=== PATIENT | female | born 1955 | race Caucasian/White ===

== ENCOUNTER 2020-03-23 17:37 | Emergency (ER) | payer MEDICARE, SELFPAY ==
[2020-03-23] VITALS (13 sets, daily range): BP systolic 206–249; BP diastolic 98–115; PULSE 62–82; RESP 17–62; TEMP 36.7; O2SAT 99–100; BMI 22.1
[2020-03-23 18:01] LABS: Add Manual Diff / Slide Review NO; Basophils Absolute Auto 0 /uL (0-100); Basophils Percent Auto 0.5 % (0-2); Eosinophils Absolute Auto 0 /uL (0-450); Eosinophils Percent Auto 0.1 % (2-4); Hematocrit 40.8 % (36-46); Hemoglobin 13.9 g/dL (12.0-16.0); Lymphocytes Absolute Auto 900 /uL (1100-4500); Lymphocytes Percent Auto 9.4 % (25-40); Mean Corpuscular HGB Conc 34.1 % (30-36); Mean Corpuscular Volume 90.7 fL (80-100); Monocytes Absolute Auto 400 /uL (0-900); Monocytes Percent Auto 4.4 % (3-14); Neutrophils Absolute Auto 8000 /uL (1500-7000); Neutrophils Percent Auto 85.6 % (50-75); Platelet Count 292 X10^3/uL (150-400); Red Cell Distribution Width 13.8 % (11.6-14.8); White Blood Cell Count 9.3 X10^3/uL (4.5-11.0)
[2020-03-23] MEDS: ONDANSETRON 4 MG/2 ML INJ IV ×2 (18:04→20:16)
[2020-03-23] MEDS: SODIUM CHLORIDE 0.9% 1,000 ML 1000 ML IV ×2 (18:04→20:45)
[2020-03-23 18:13] LABS: Alanine Aminotransferase 15 IU/L (<35); Albumin 4.7 g/dL (3.5-5.0); Albumin Globulin Ratio 1.3 (1.0-2.8); Alkaline Phosphatase 137 U/L (38-126); Aspartate Aminotransferase 28 IU/L (14-36); BUN Creatinine Ratio 17.1 (6-22); Blood Urea Nitrogen 20 mg/dL (7-17); Calcium 10.2 mg/dL (8.4-10.2); Carbon Dioxide 17 mmol/L (22-32); Chloride 105 mmol/L (98-107); Creatine Kinase 44 U/L (30-135); Estimated Glomerular Filt Rate 46.3 mL/min (>60); Globulin 3.5 g/dL (1.7-4.1); Glucose 194 mg/dL (80-110); HEMOLYSIS < 15 (0-50); Lipase 123 U/L (23-300); Potassium 3.2 mmol/L (3.4-5.1); Sodium 139 mmol/L (137-145); Total Protein 8.2 g/dL (6.3-8.2)
[2020-03-23 18:14] LABS: Lactate (Lactic Acid) 2.4 mmol/L (0.7-2.1)
[2020-03-23 18:25] LABS: Troponin I < 0.012 ng/mL (0.01-0.034)
--- NOTE | 2020-03-23 18:31 | DI.CT.S_ITS ---
PROCEDURE: CT CHEST ABD PEL W CON INDICATIONS: epigastric pain, abd pain, vomiting TECHNIQUE: After the administration of intravenous contrast, 5 mm thick sections acquired from the lung apices to the symphysis. 5 mm coronal and sagittal reformats were performed, with additional 7 mm MIP reformats through the lungs. For radiation dose reduction, the following was used: automated exposure control, adjustment of mA and/or kV according to patient size. COMPARISON: None. FINDINGS: Image quality: Excellent. CHEST: Lungs and pleura: No acute airspace opacities. Moderate upper lobe emphysematous changes. 6 mm right medial lung base nodule and 3 mm right posterior lower lobe subpleural nodule. Occasional punctate subpleural nodules throughout the left lower lobe. No pleural effusions or pneumothorax. Central and peripheral airways appear patent and normal in caliber. Mediastinum: Heart size is normal. No pericardial effusion. No mediastinal or hilar adenopathy by size criteria. Thoracic aorta and central pulmonary arteries are normal in size. Esophagus is normal in caliber. Very small hiatal hernia. Chest wall: Nonunited left mid posterior rib fracture. No axillary or supraclavicular adenopathy by size criteria. Thyroid gland is normal . ABDOMEN: Solid organs: Liver is normal in size and enhancement. Gallbladder is not seen. Biliary system is mildly prominent, but within normal limits post cholecystectomy . Biliary system is non dilated. Pancreas enhances normally. Spleen is normal in size and enhancement. 2.8 cm low-density left adrenal nodule. Kidneys demonstrate normal size and enhancement, without hydronephrosis. Peritoneum and bowel: There are expected surgical staple lines of reported gastric bypass. There is mild thin-walled dilatation of the 1st portion of the duodenum. Bowel loops otherwise have normal caliber. There is extensive diverticulosis of the sigmoid colon without acute diverticulitis. Mild wall thickening involving the proximal colon and to the proximal transverse colon with questionable pericolonic inflammation. This may be in part due to under distension. No associated fluid collections. No free fluid or air. Normal appendix. Nodes and vessels: No retroperitoneal or mesenteric adenopathy by size criteria. Aorta and inferior vena cava are normal in size. Miscellaneous: Surgical tacks and mesh of prior midline ventral abdominal wall hernia repair.. PELVIS: Genitourinary: Bladder wall thickness is normal. Uterus is surgically absent. Miscellaneous: No inguinal hernias or adenopathy. Bones: No suspicious bony lesions. No vertebral body compression fractures. Severe degenerative disc and endplate changes at the L2-3 level with grade 1 retrolisthesis. IMPRESSION: 1. Mild wall thickening and questionable pericolonic inflammation involving the proximal colon and proximal transverse colon. Findings suggestive of infectious or inflammatory colitis. 2. Moderate emphysema with a few right lung nodules as described. Follow-up chest CT in six months recommended to document stability. 3. Surgical changes of gastric bypass, cholecystectomy, and hysterectomy. 4. Sigmoid diverticulosis without acute diverticulitis. 5. 2.8 cm left adrenal adenoma. Dictated by: Jessica Tabares M.D. on 03/23/2020 at 19:39 Approved by: Jessica Tabares M.D. on 03/23/2020 at 19:51
[2020-03-23] MEDS: LORazepam 2 MG/ML INJ 0.5 MG IV ×2 (18:36→20:15)
[2020-03-23 19:56] LABS: Reflexed Lactate in 2 Hours Y
[2020-03-23] MEDS: methylPREDNISolone 125 MG/2 ML VIAL IV (20:17)
--- NOTE | 2020-03-23 20:32 | ED.NAVMDI ---
HPI - Nausea/Vomiting/Diarrhea <CYDNEY Sabillon-BC - Last Filed: 03/23/20 22:29> General Chief complaint: Nausea/Vomiting/Diarrhea Stated complaint: Nausea and Vomiting Time Seen by Provider: 03/23/20 17:41 Source: patient and family Mode of arrival: Wheelchair Limitations: no limitations History of Present Illness HPI Narrative: The patient is a 64-year-old female former smoker with history of hypertension and Marii-en-Y gastric bypass who presents with a chief complaint of nausea and vomiting that started after eating lunch at the [employer] today. She denies any diarrhea. She denies any abdominal pain, just states that she has issues with nausea and vomiting several times per month after her gastric bypass surgery. She denies any dysuria urgency or frequency. She denies any chest pain or shortness of breath. She states she feels anxious she states that she has also had a cholecystectomy. This all started about 3:00 a.m. today does not know how many times she has vomited but. States it is ?a lot she has not taken her blood pressure medication as she normally takes that at night. She took a nausea medicine after it started, but does not know what it is. She comes in with her friend. Related Data Previous Rx's Medication Instructions Recorded ondansetron 4 mg PO Q6H PRN #20 tab 03/23/20 prednisone 40 mg PO DAILY #10 tab 03/23/20 Allergies Allergy/AdvReac Type Severity Reaction Status Date / Time Penicillins Allergy Verified 03/23/20 18:10 Review of Systems <ZULY Sabillon - Last Filed: 03/23/20 22:29> Review of Systems Narrative: GENERAL: Denies chills, fatigue, malaise, fever, sweats. HEENT: Denies sinus pain, ear pain, sore throat, difficulty swallowing, dizziness. RESPIRATORY: Denies dyspnea, cough, wheezing, hemoptysis, sputum. CARDIOVASCULAR: Denies chest pain, palpitations, orthopnea, edema, GASTROINTESTINAL: See HPI : Denies dysuria, frequency, incontinence, hematuria, urinary retention. MUSCULOSKELETAL: denies weakness, joint pain, or bony pain SKIN: Denies rash, skin lesions, or other NEUROLOGIC: Denies weakness, headache, numbness, change in speech, confusion, seizures, incoordination. PSYCHIATRIC: No concerning psychosocial issues. 12 point review of systems is negative except for those stated above Patient History <KAMILLE Sabillon - Last Filed: 03/23/20 22:29> Medical History (Updated 03/23/20 @ 22:25 by KAMILLE Sabillon) Hypertension (Acute) Surgical History (Updated 03/23/20 @ 21:44 by KAMILLE Sabillon) History of cholecystectomy (Acute) History of Marii-en-Y gastric bypass (Acute) Social History Smoking Status: Former smoker Smoking Status: Former smoker alcohol intake frequency: 0-2 drinks per day Substance Use Type: does not use Exam <KAMILLE Sabillon - Last Filed: 03/23/20 22:29> Narrative Exam Narrative: GENERAL: This is a well-nourished, well-developed patient, appears very anxious HEAD: Atraumatic. Normocephalic. No temporal or scalp tenderness. EYES: Pupils equal round and reactive. Extraocular motions intact. No scleral icterus. No injection or drainage. ENT: Nose without bleeding, purulent drainage or septal hematoma. Throat without erythema, tonsillar hypertrophy or exudate. Uvula midline. Airway patent. NECK: Trachea midline. No JVD or lymphadenopathy. Supple, nontender, no meningeal signs. CARDIOVASCULAR: Regular rate and rhythm RESPIRATORY: Clear to auscultation. Breath sounds equal bilaterally. No wheezes, rales, or rhonchi. Tachypneic initially. GASTROINTESTINAL: Abdomen diffusely tender to palpation, non-tender, nondistended. No hepato-splenomegaly, or palpable masses. No guarding. Active bowel sounds all 4 quadrants EXTREMITIES: No clubbing, cyanosis, or edema. No joint tenderness, effusion, or edema noted. BACK: Nontender without deformity or crepitance. No flank tenderness. NEURO: AOx3. SKIN: No rash or erythema on visible skin Initial Vital Signs Initial Vital Signs: Vital Signs Temperature 98.1 F 03/23/20 17:47 Pulse Rate 62 03/23/20 17:47 Respiratory Rate 17 03/23/20 17:47 Blood Pressure 249/115 H 03/23/20 17:47 Pulse Oximetry 99 03/23/20 17:47 <Brian Kothari DO - Last Filed: 03/23/20 23:11> Initial Vital Signs Initial Vital Signs: Vital Signs Temperature 98.1 F 03/23/20 17:47 Pulse Rate 62 03/23/20 17:47 Respiratory Rate 17 03/23/20 17:47 Blood Pressure 249/115 H 03/23/20 17:47 Pulse Oximetry 99 03/23/20 17:47 Scores <ZULY SabillonBC - Last Filed: 03/23/20 22:29> GCS Camila coma scale eye opening: Spontaneous Camila coma scale verbal response: Orientated Camila coma scale motor response: Obey commands [place] coma scale total score: 15 Course <KAMILLE Sabillon - Last Filed: 03/23/20 22:29> Orders Ordered: ED Orders 03/23/20 17:50 Complete Blood Count AUTO DIFF Stat Comprehensive Metabolic Panel Stat Lactate (Lactic Acid) Stat Lipase Stat Troponin & CK Cardiac Panel Stat 03/23/20 18:31 CT chest abd pel w con Stat 03/23/20 20:32 Basic Metabolic Panel Stat Lactate (Lactic Acid) Stat Discontinued Medications Sodium Chloride (Normal Saline 0.9%) 1,000 mls @ 1,000 mls/hr IV BOLUS ONE Stop: 03/23/20 18:45 Last Infusion: 03/23/20 20:46 Dose: 0 mls/hr Documented by: Admin: 03/23/20 18:04 Dose: 1,000 mls/hr Documented by: DAVIAN Sodium Chloride (Normal Saline 0.9%) 1,000 mls @ 1,000 mls/hr IV BOLUS ONE Stop: 03/23/20 21:05 Last Infusion: 03/23/20 22:31 Dose: 0 mls/hr Documented by: Admin: 03/23/20 20:45 Dose: 1,000 mls/hr Documented by: MELVIN Lorazepam (Ativan) 0.5 mg IV NOW ONE Stop: 03/23/20 18:17 Last Admin: 03/23/20 18:36 Dose: 0.5 mg Documented by: DAVIAN Lorazepam (Ativan) 0.5 mg IV NOW ONE Stop: 03/23/20 20:09 Last Admin: 03/23/20 20:15 Dose: 0.5 mg Documented by: MELVIN Methylprednisolone (Solu-Medrol 125 Mg Vial) 125 mg IV NOW ONE Stop: 03/23/20 20:07 Last Admin: 03/23/20 20:17 Dose: 125 mg Documented by: MELVIN Ondansetron HCl (Zofran) 4 mg IV NOW ONE Stop: 03/23/20 17:47 Last Admin: 03/23/20 18:04 Dose: 4 mg Documented by: DAVIAN Ondansetron HCl (Zofran) 4 mg IV NOW ONE Stop: 03/23/20 20:07 Last Admin: 03/23/20 20:16 Dose: 4 mg Documented by: MELVIN Ondansetron HCl (Zofran Odt Prepack) 1 bottle MISC SEEINSTR ONE Stop: 03/23/20 22:22 Last Admin: 03/23/20 22:31 Dose: 1 bottle Documented by: CORINNE Potassium Chloride (Klor-Con M20) 40 meq PO DAILYCC [facility] Potassium Chloride (Klor-Con M20) 40 meq PO NOW ONE Stop: 03/23/20 21:22 Last Admin: 03/23/20 21:25 Dose: 40 meq Documented by: CORINNE Vital Signs Vital signs: Vital Signs - 8 hr 03/23/20 17:47 03/23/20 19:19 03/23/20 19:30 Temperature 98.1 F Pulse Rate 62 71 82 Respiratory Rate 17 20 36 H Blood Pressure 249/115 H 227/112 H 216/115 H Pulse Oximetry 99 99 03/23/20 20:00 03/23/20 20:30 03/23/20 21:00 Temperature Pulse Rate 72 75 80 Respiratory Rate 21 24 27 H Blood Pressure 225/112 H 206/108 H 209/114 H Pulse Oximetry 03/23/20 21:28 03/23/20 21:30 03/23/20 21:31 Temperature Pulse Rate 72 75 74 Respiratory Rate 23 22 23 Blood Pressure 219/111 H Pulse Oximetry 100 100 100 03/23/20 22:00 03/23/20 22:05 03/23/20 22:30 Temperature Pulse Rate 74 75 75 Respiratory Rate 26 H 26 H 62 H Blood Pressure 229/100 H Pulse Oximetry 03/23/20 22:31 Temperature Pulse Rate 80 Respiratory Rate 43 H Blood Pressure 218/98 H Pulse Oximetry <Brian Kothari DO - Last Filed: 03/23/20 23:11> Orders Ordered: ED Orders 03/23/20 17:50 Complete Blood Count AUTO DIFF Stat Comprehensive Metabolic Panel Stat Lactate (Lactic Acid) Stat Lipase Stat Troponin & CK Cardiac Panel Stat 03/23/20 18:31 CT chest abd pel w con Stat 03/23/20 20:32 Basic Metabolic Panel Stat Lactate (Lactic Acid) Stat Discontinued Medications Sodium Chloride (Normal Saline 0.9%) 1,000 mls @ 1,000 mls/hr IV BOLUS ONE Stop: 03/23/20 18:45 Last Infusion: 03/23/20 20:46 Dose: 0 mls/hr Documented by: Admin: 03/23/20 18:04 Dose: 1,000 mls/hr Documented by: DAVIAN Sodium Chloride (Normal Saline 0.9%) 1,000 mls @ 1,000 mls/hr IV BOLUS ONE Stop: 03/23/20 21:05 Last Infusion: 03/23/20 22:31 Dose: 0 mls/hr Documented by: Admin: 03/23/20 20:45 Dose: 1,000 mls/hr Documented by: MELVIN Lorazepam (Ativan) 0.5 mg IV NOW ONE Stop: 03/23/20 18:17 Last Admin: 03/23/20 18:36 Dose: 0.5 mg Documented by: DAVIAN Lorazepam (Ativan) 0.5 mg IV NOW ONE Stop: 03/23/20 20:09 Last Admin: 03/23/20 20:15 Dose: 0.5 mg Documented by: MELVIN Methylprednisolone (Solu-Medrol 125 Mg Vial) 125 mg IV NOW ONE Stop: 03/23/20 20:07 Last Admin: 03/23/20 20:17 Dose: 125 mg Documented by: MELVIN Ondansetron HCl (Zofran) 4 mg IV NOW ONE Stop: 03/23/20 17:47 Last Admin: 03/23/20 18:04 Dose: 4 mg Documented by: DAVIAN Ondansetron HCl (Zofran) 4 mg IV NOW ONE Stop: 03/23/20 20:07 Last Admin: 03/23/20 20:16 Dose: 4 mg Documented by: MELVIN Ondansetron HCl (Zofran Odt Prepack) 1 bottle MISC SEEINSTR ONE Stop: 03/23/20 22:22 Last Admin: 03/23/20 22:31 Dose: 1 bottle Documented by: CORINNE Potassium Chlor[facility] ([facility]-Con M[facility]) [facility] Potassium Chloride (Klor-Con M20) 40 meq PO NOW ONE Stop: 03/23/20 21:22 Last Admin: 03/23/20 21:25 Dose: 40 meq Documented by: CORINNE Vital Signs Vital signs: Vital Signs - 8 hr 03/23/20 17:47 03/23/20 19:19 03/23/20 19:30 Temperature 98.1 F Pulse Rate 62 71 82 Respiratory Rate 17 20 36 H Blood Pressure 249/115 H 227/112 H 216/115 H Pulse Oximetry 99 99 03/23/20 20:00 03/23/20 20:30 03/23/20 21:00 Temperature Pulse Rate 72 75 80 Respiratory Rate 21 24 27 H Blood Pressure 225/112 H 206/108 H 209/114 H Pulse Oximetry 03/23/20 21:28 03/23/20 21:30 03/23/20 21:31 Temperature Pulse Rate 72 75 74 Respiratory Rate 23 22 23 Blood Pressure 219/111 H Pulse Oximetry 100 100 100 03/23/20 22:00 03/23/20 22:05 03/23/20 22:30 Temperature Pulse Rate 74 75 75 Respiratory Rate 26 H 26 H 62 H Blood Pressure 229/100 H Pulse Oximetry 03/23/20 22:31 Temperature Pulse Rate 80 Respiratory Rate 43 H Blood Pressure 218/98 H Pulse Oximetry MDM - Nausea/Vomiting/Diarrhea <CYDNEY Sabillon- - Last Filed: 03/23/20 22:29> Lab Data Result diagrams: 03/23/20 17:50 03/23/20 20:32 Labs: Lab Results 03/23/20 03/23/20 03/23/20 Range/Units 17:50 17:50 17:50 WBC 9.3 (4.5-11.0) X10^3/uL RBC 4.50 (4.0-5.2) X10^6/uL Hgb 13.9 (12.0-16.0) g/dL Hct 40.8 (36-46) % MCV 90.7 (80-100) fL MCH 31.0 (26-34) PG MCHC 34.1 (30-36) % RDW 13.8 (11.6-14.8) % Plt Count 292 (150-400) X10^3/uL Neut % (Auto) 85.6 H (50-75) % Lymph % (Auto) 9.4 L (25-40) % [place] % (Auto) 4.4 (3-14) % Eos % (Auto) 0.1 L (2-4) % Baso % (Auto) 0.5 (0-2) % Neut # (Auto) 8000 H (0559-5558) /uL Lymph # (Auto) 900 L (1335-9208) /uL [place] # (Auto) 400 (0-900) /uL Eos # (Auto) 0 (0-450) /uL Baso # (Auto) 0 (0-100) /uL Sodium 139 (137-145) mmol/L Potassium 3.2 L (3.4-5.1) mmol/L Chloride 105 (98-107) mmol/L Carbon Dioxide 17 L (22-32) mmol/L BUN 20 H (7-17) mg/dL Creatinine 1.17 H (0.52-1.04) mg/dL Estimated GFR 46.3 L (>60) mL/min BUN/Creatinine Ratio 17.1 (6-22) Glucose 194 H (80-110) mg/dL Lactate 2.4 H (0.7-2.1) mmol/L Calcium 10.2 (8.4-10.2) mg/dL Total Bilirubin 1.0 (0.2-1.3) mg/dL AST 28 (14-36) IU/L ALT 15 (<35) IU/L Alkaline Phosphatase 137 H (38-126) U/L Total Creatine Kinase 44 (30-135) U/L CK-MB (CK-2) TNP CK-MB (CK-2) Rel Index TNP Troponin I < 0.012 (0.01-0.034) ng/mL Total Protein 8.2 (6.3-8.2) g/dL Albumin 4.7 (3.5-5.0) g/dL Globulin 3.5 (1.7-4.1) g/dL Albumin/Globulin Ratio 1.3 (1.0-2.8) Lipase 123 (23-300) U/L 03/23/20 03/23/20 Range/Units 20:32 20:32 WBC (4.5-11.0) X10^3/uL RBC (4.0-5.2) X10^6/uL Hgb (12.0-16.0) g/dL Hct (36-46) % MCV (80-100) fL MCH (26-34) PG MCHC (30-36) % RDW (11.6-14.8) % Plt Count (150-400) X10^3/uL Neut % (Auto) (50-75) % Lymph % (Auto) (25-40) % [place] % (Auto) (3-14) % Eos % (Auto) (2-4) % Baso % (Auto) (0-2) % Neut # (Auto) (8273-8471) /uL Lymph # (Auto) (4849-4201) /uL [place] # (Auto) (0-900) /uL Eos # (Auto) (0-450) /uL Baso # (Auto) (0-100) /uL Sodium 139 (137-145) mmol/L Potassium 3.2 L (3.4-5.1) mmol/L Chloride 106 (98-107) mmol/L Carbon Dioxide 19 L (22-32) mmol/L BUN 18 H (7-17) mg/dL Creatinine 1.03 (0.52-1.04) mg/dL Estimated GFR 53.6 L (>60) mL/min BUN/Creatinine Ratio 17.5 (6-22) Glucose 215 H (80-110) mg/dL Lactate 1.5 (0.7-2.1) mmol/L Calcium 9.9 (8.4-10.2) mg/dL Total Bilirubin (0.2-1.3) mg/dL AST (14-36) IU/L ALT (<35) IU/L Alkaline Phosphatase (38-126) U/L Total Creatine Kinase (30-135) U/L CK-MB (CK-2) CK-MB (CK-2) Rel Index Troponin I (0.01-0.034) ng/mL Total Protein (6.3-8.2) g/dL Albumin (3.5-5.0) g/dL Globulin (1.7-4.1) g/dL Albumin/Globulin Ratio (1.0-2.8) Lipase (23-300) U/L Urine Dip Bedside Urine Glucose 100 mg/dl Bedside Urine Bilirubin - Negative Bedside Urine Ketone ++ 40 Urine Specific [place] 1.010 Bedside Urine Occult Blood +/- Bedside Urine pH 7.5 Bedside Urine Protein + 30 Bedside Urine Urobilinogen - Negative Bedside Urine Nitrite - Negative Bedside Urine Leukocytes - Negative Esterase Imaging Data CT scan - abdomen/pelvis: Radiologist's Impression: [address] [place] [id number] Scan Report Signed Patient: Adri Mendoza [facility]#: [id number] : 4Acct:[id number] Age/Sex: 64 / FDate of Service: 03/23/20 Loc: ED Accession Number: [id number] Procedure: CT chest abd pel w con Ordering Provider: Marly Collins- PROCEDURE: CT CHEST ABD PEL W CON INDICATIONS: epigastric pain, abd pain, vomiting TECHNIQUE: After the administration of intravenous contrast, 5 mm thick sections acquired from the lung apices to the symphysis. 5 mm coronal and sagittal reformats were performed, with additional 7 mm MIP reformats through the lungs. For radiation dose reduction, the following was used: automated exposure control, adjustment of mA and/or kV according to patient size. COMPARISON: None. FINDINGS: Image quality: Excellent. CHEST: Lungs and pleura: No acute airspace opacities. Moderate upper lobe emphysematous changes. 6 mm right medial lung base nodule and 3 mm right posterior lower lobe subpleural nodule. Occasional punctate subpleural nodules throughout the left lower lobe. No pleural effusions or pneumothorax. Central and peripheral airways appear patent and normal in caliber. Mediastinum: Heart size is normal. No pericardial effusion. No mediastinal or hilar adenopathy by size criteria. Thoracic aorta and central pulmonary arteries are normal in size. Esophagus is normal in caliber. Very small hiatal hernia. Chest wall: Nonunited left mid posterior rib fracture. No axillary or supraclavicular adenopathy by size criteria. Thyroid gland is normal . ABDOMEN: Solid organs: Liver is normal in size and enhancement. Gallbladder is not seen. Biliary system is mildly prominent, but within normal limits post cholecystectomy . Biliary system is non dilated. Pancreas enhances normally. Spleen is normal in size and enhancement. 2.8 cm low-density left adrenal nodule. Kidneys demonstrate normal size and enhancement, without hydronephrosis. Peritoneum and bowel: There are expected surgical staple lines of reported gastric bypass. There is mild thin-walled dilatation of the 1st portion of the duodenum. Bowel loops otherwise have normal caliber. There is extensive diverticulosis of the sigmoid colon without acute diverticulitis. Mild wall thickening involving the proximal colon and to the proximal transverse colon with questionable pericolonic inflammation. This may be in part due to under distension. No associated fluid collections. No free fluid or air. Normal appendix. Nodes and vessels: No retroperitoneal or mesenteric adenopathy by size criteria. Aorta and inferior vena cava are normal in size. Miscellaneous: Surgical tacks and mesh of prior midline ventral abdominal wall hernia repair.. PELVIS: Genitourinary: Bladder wall thickness is normal. Uterus is surgically absent. Miscellaneous: No inguinal hernias or adenopathy. Bones: No suspicious bony lesions. No vertebral body compression fractures. Severe degenerative disc and endplate changes at the L2-3 level with grade 1 retrolisthesis. IMPRESSION: 1. Mild wall thickening and questionable pericolonic inflammation involving the proximal colon and proximal transverse colon. Findings suggestive of infectious or inflammatory colitis. 2. Moderate emphysema with a few right lung nodules as described. Follow-up chest CT in six months recommended to document stability. 3. Surgical changes of gastric bypass, cholecystectomy, and hysterectomy. 4. Sigmoid diverticulosis without acute diverticulitis. 5. 2.8 cm left adrenal adenoma. Dictated by: Jessica Tabares M.D. on 03/23/2020 at 19:39 Approved by: Jessica Tabares M.D. on 03/23/2020 at 19:51 ECG Data Attestation: I personally reviewed and interpreted this ECG as follows: Interpretation: Sinus rhythm. Ventricular rate 69. QRS 140. No ectopy noted. Viewed by Dr. Vargas. [facility] Narrative Medical decision making narrative: The patient is a 64-year-old female who presents with a chief complaint of profuse nausea and vomiting. This happened after eating and all [place]. guarding. Given her exam, presentation and history of gastric bypass, CT was taken and obtain. Illustrate colitis. This is moving thought to be inflammatory given that she has no leukocytosis, no fever. She was given steroids and anti medics as listed above, and felt much improved. The patient had not taken her antihypertensive medications prior to her visit today, so she received them during her p.o. trial. Of note her CT scan was found to have incidental findings of right leg nodules as well as adrenal nodule. Patient states that adrenal adenoma is not new. Encouraged follow-up with primary care provider when she gets back home. The patient was given IV fluid in the emergency department, her initial lactate was slightly elevated and her CO2 was initially 17, that be due to her tachypnea. Her CO2 improved to 19 on her repeat labs, and her lactate normalized. She was able to tolerate a p.o. trial, keeping down ice water and kamilah fátima. Prescriptions of Solu-Medrol and Zofran were sent in. Encouraged follow-up with primary care provider soon as possible coming back to the emergency department for any acute concerns such as inability keep down fluids. Also discussed monitor for abdominal pain with fever and flank pain. Her initial potassium was slightly low 3.2, so she was replaced in the emergency department. The patient was hypertensive upon arrival, with BP of 249/115. She eventually took her p.o. antihypertensive medications in the emergency department her blood pressure decreased to 219/111. She has no evidence of organ dysfunction, no chest pain shortness of breath or headache, so I encouraged her to repeat her blood pressure tomorrow, consider taking her blood pressure medication early, come back to the emergency department for any acute concerns and follow up with primary care provider. Discussed case with Dr. Kothari. Patient has no questions or concerns upon discharge and states understanding of return precautions as well as follow-up care. <Brian Kothari, DO - Last Filed: 03/23/20 23:11> Lab Data Labs: Lab Results 03/23/20 03/23/20 03/23/20 Range/Units 17:50 17:50 17:50 WBC 9.3 (4.5-11.0) X10^3/uL RBC 4.50 (4.0-5.2) X10^6/uL Hgb 13.9 (12.0-16.0) g/dL Hct 40.8 (36-46) % MCV 90.7 (80-100) fL MCH 31.0 (26-34) PG MCHC 34.1 (30-36) % RDW 13.8 (11.6-14.8) % Plt Count 292 (150-400) X10^3/uL Neut % (Auto) 85.6 H (50-75) % Lymph % (Auto) 9.4 L (25-40) % [place] % (Auto) 4.4 (3-14) % Eos % (Auto) 0.1 L (2-4) % Baso % (Auto) 0.5 (0-2) % Neut # (Auto) 8000 H (9206-5386) /uL Lymph # (Auto) 900 L (2721-0639) /uL [place] # (Auto) 400 (0-900) /uL Eos # (Auto) 0 (0-450) /uL Baso # (Auto) 0 (0-100) /uL Sodium 139 (137-145) mmol/L Potassium 3.2 L (3.4-5.1) mmol/L Chloride 105 (98-107) mmol/L Carbon Dioxide 17 L (22-32) mmol/L BUN 20 H (7-17) mg/dL Creatinine 1.17 H (0.52-1.04) mg/dL Estimated GFR 46.3 L (>60) mL/min BUN/Creatinine Ratio 17.1 (6-22) Glucose 194 H (80-110) mg/dL Lactate 2.4 H (0.7-2.1) mmol/L Calcium 10.2 (8.4-10.2) mg/dL Total Bilirubin 1.0 (0.2-1.3) mg/dL AST 28 (14-36) IU/L ALT 15 (<35) IU/L Alkaline Phosphatase 137 H (38-126) U/L Total Creatine Kinase 44 (30-135) U/L CK-MB (CK-2) TNP CK-MB (CK-2) Rel Index TNP Troponin I < 0.012 (0.01-0.034) ng/mL Total Protein 8.2 (6.3-8.2) g/dL Albumin 4.7 (3.5-5.0) g/dL Globulin 3.5 (1.7-4.1) g/dL Albumin/Globulin Ratio 1.3 (1.0-2.8) Lipase 123 (23-300) U/L 03/23/20 03/23/20 Range/Units 20:32 20:32 WBC (4.5-11.0) X10^3/uL RBC (4.0-5.2) X10^6/uL Hgb (12.0-16.0) g/dL Hct (36-46) % MCV (80-100) fL MCH (26-34) PG MCHC (30-36) % RDW (11.6-14.8) % Plt Count (150-400) X10^3/uL Neut % (Auto) (50-75) % Lymph % (Auto) (25-40) % [place] % (Auto) (3-14) % Eos % (Auto) (2-4) % Baso % (Auto) (0-2) % Neut # (Auto) (7433-4566) /uL Lymph # (Auto) (4934-4433) /uL [place] # (Auto) (0-900) /uL Eos # (Auto) (0-450) /uL Baso # (Auto) (0-100) /uL Sodium 139 (137-145) mmol/L Potassium 3.2 L (3.4-5.1) mmol/L Chloride 106 (98-107) mmol/L Carbon Dioxide 19 L (22-32) mmol/L BUN 18 H (7-17) mg/dL Creatinine 1.03 (0.52-1.04) mg/dL Estimated GFR 53.6 L (>60) mL/min BUN/Creatinine Ratio 17.5 (6-22) Glucose 215 H (80-110) mg/dL Lactate 1.5 (0.7-2.1) mmol/L Calcium 9.9 (8.4-10.2) mg/dL Total Bilirubin (0.2-1.3) mg/dL AST (14-36) IU/L ALT (<35) IU/L Alkaline Phosphatase (38-126) U/L Total Creatine Kinase (30-135) U/L CK-MB (CK-2) CK-MB (CK-2) Rel Index Troponin I (0.01-0.034) ng/mL Total Protein (6.3-8.2) g/dL Albumin (3.5-5.0) g/dL Globulin (1.7-4.1) g/dL Albumin/Globulin Ratio (1.0-2.8) Lipase (23-300) U/L Urine Dip Bedside Urine Glucose 100 mg/dl Bedside Urine Bilirubin - Negative Bedside Urine Ketone ++ 40 Urine Specific [place] 1.010 Bedside Urine Occult Blood +/- Bedside Urine pH 7.5 Bedside Urine Protein + 30 Bedside Urine Urobilinogen - Negative Bedside Urine Nitrite - Negative Bedside Urine Leukocytes - Negative Esterase Discharge Plan Departure Patient Disposition: Home Clinical Impression: Colitis, Lung nodule Adrenal adenoma Qualifiers: Laterality: left Qualified Code(s): D35.02 - Benign neoplasm of left adrenal gland Hypertension Qualifiers: Hypertension type: unspecified Qualified Code(s): I10 - Essential (primary) hypertension Discharge Date/Time: 03/23/20 22:39 Instructions: DI for High Blood Pressure, DI for Nausea -- Adult, DI for Vomiting -- Adult, DI for Pulmonary Nodule, DI for Colitis Activity Restrictions/Additional Instructions: Thank you for trusting us with your care today. As discussed, your CT scan shows colitis. We have placed you on steroids given you antinausea medicine. I sent these prescriptions to [facility]. Please eat a light diet over the next few days, focus on fluids avoid spicy foods, deep fried fatty foods, fatty foods alcohol citrus etcetera Please follow-up with primary care provider in the next few days as soon as possible. I have given you contact information [facility] health [employer] resource [employer]. They can help you find a primary care provider in the area. Please come back to emergency department for any acute concerns such as abdominal pain with fever, inability keep down fluids etcetera As discussed, your blood pressure has remained high throughout her stay in the emergency department. Please continue to take your blood pressure medications and repeat your blood pressure tomorrow. Of course come back to the emergency department for any acute concerns such as chest pain, shortness of breath, concerns of heart attack or stroke Prescriptions: New prednisone 20 mg tablet 40 mg PO DAILY Qty: 10 RF: 0 ondansetron 4 mg tablet,disintegrating 4 mg PO Q6H PRN (Reason: nausea and vomiting) Qty: 20 RF: 0 Referrals: [facility] [Outside] <Brian Kothari DO - Last Filed: 03/23/20 23:11> Cosign ED Attending Cosignature Attestation: Dr Kothari Co-Sign Statement: I was available for consultation during this patient's emergency department visit. This chart is signed by myself for administrative purposes only. I did not have direct contact with this patient during this visit. They were seen independently by the APC.
[2020-03-23 21:06] LABS: BUN Creatinine Ratio 17.5 (6-22); Blood Urea Nitrogen 18 mg/dL (7-17); Calcium 9.9 mg/dL (8.4-10.2); Carbon Dioxide 19 mmol/L (22-32); Chloride 106 mmol/L (98-107); Estimated Glomerular Filt Rate 53.6 mL/min (>60); Glucose 215 mg/dL (80-110); HEMOLYSIS < 15 (0-50); Lactate (Lactic Acid) 1.5 mmol/L (0.7-2.1); Potassium 3.2 mmol/L (3.4-5.1); Sodium 139 mmol/L (137-145)
[2020-03-23] MEDS: POTASSIUM CHLORIDE 20 MEQ TAB 40 MEQ PO (21:25)
[2020-03-23] MEDS: ONDANSETRON 4 MG ODT PREPACK 1 BOTTLE MISC (22:31)
== END 2020-03-23 22:39 | disposition home or self-care (01) ==
PROVIDERS: Emergency Provider Nurse Practitioner Family
DX: K52.9 Noninfective gastroenteritis and colitis, unspecified (principal); R91.1 Solitary pulmonary nodule; D35.02 Benign neoplasm of left adrenal gland; I10 Essential (primary) hypertension; R10.13 Epigastric pain
CPT/HCPCS: 36415; 71260; 74177; 80048; 80053; 81003; 82550; 83605; 83690; 84484; 85025; 93005; 96361; 96374; 96375; 96376; 99284; J2060; J2405; J2930; Q9967

== ENCOUNTER 2020-03-25 16:40 | Inpatient (IN) | payer MEDICARE, SELFPAY ==
[2020-03-25] VITALS (11 sets, daily range): BP systolic 97–228; BP diastolic 61–110; PULSE 53–95; RESP 14–32; TEMP 36.8–37.3; O2SAT 97–100; BMI 22.1; BMI 21.9
[2020-03-25] MEDS: SODIUM CHLORIDE 0.9% 1,000 ML 1000 ML IV (17:01)
[2020-03-25 17:06] LABS: Add Manual Diff / Slide Review NO; Basophils Absolute Auto 100 /uL (0-100); Basophils Percent Auto 0.4 % (0-2); Eosinophils Absolute Auto 0 /uL (0-450); Eosinophils Percent Auto 0.1 % (2-4); Hematocrit 46.9 % (36-46); Hemoglobin 15.4 g/dL (12.0-16.0); Lymphocytes Absolute Auto 2300 /uL (1100-4500); Lymphocytes Percent Auto 17.9 % (25-40); Mean Corpuscular HGB Conc 32.9 % (30-36); Monocytes Absolute Auto 800 /uL (0-900); Monocytes Percent Auto 6.1 % (3-14); Neutrophils Absolute Auto 9700 /uL (1500-7000); Neutrophils Percent Auto 75.5 % (50-75); Platelet Count 262 X10^3/uL (150-400); Red Blood Cell Count 5.15 X10^6/uL (4.0-5.2); Red Cell Distribution Width 14.4 % (11.6-14.8); White Blood Cell Count 12.9 X10^3/uL (4.5-11.0)
[2020-03-25 17:15] LABS: Alanine Aminotransferase 17 IU/L (<35); Albumin 4.5 g/dL (3.5-5.0); Albumin Globulin Ratio 1.2 (1.0-2.8); Alkaline Phosphatase 118 U/L (38-126); Aspartate Aminotransferase 25 IU/L (14-36); BUN Creatinine Ratio 12.9 (6-22); Bilirubin Total 1.3 mg/dL (0.2-1.3); Blood Urea Nitrogen 35 mg/dL (7-17); Calcium 10.2 mg/dL (8.4-10.2); Carbon Dioxide 23 mmol/L (22-32); Chloride 99 mmol/L (98-107); Estimated Glomerular Filt Rate 17.6 mL/min (>60); Globulin 3.8 g/dL (1.7-4.1); Glucose 129 mg/dL (80-110); HEMOLYSIS 19 (0-50); Potassium 3.6 mmol/L (3.4-5.1); Sodium 135 mmol/L (137-145); Total Protein 8.3 g/dL (6.3-8.2)
[2020-03-25] MEDS: ONDANSETRON 4 MG/2 ML INJ IV (17:36)
[2020-03-25] MEDS: LORazepam 2 MG/ML INJ 0.5 MG IV (17:36)
[2020-03-25 17:37] LABS: Lactate (Lactic Acid) 2.7 mmol/L (0.7-2.1)
[2020-03-25 17:40] LABS: Creatine Kinase 43 U/L (30-135)
--- NOTE | 2020-03-25 17:49 | DI.RAD.S_ITS ---
PROCEDURE: XR CHEST 1V INDICATIONS: chest pain TECHNIQUE: One view of the chest was acquired. COMPARISON: None. FINDINGS: Surgical changes and devices: Upper abdominal postoperative changes are seen. Lungs and pleura: Lungs are clear. No pleural effusions or pneumothorax. Mediastinum: The cardiac contours are within normal limits. The aorta demonstrates calcification and tortuosity. Bones and chest wall: Age-appropriate bony degenerative changes are seen. No suspicious bony lesions. Overlying soft tissues appear unremarkable. IMPRESSION: No acute cardiopulmonary process is seen. Postoperative and degenerative changes are seen. Dictated by: Vincenzo Martínez M.D. on 03/25/2020 at 17:20 Approved by: Vincenzo Martínez M.D. on 03/25/2020 at 17:21
[2020-03-25 17:53] LABS: Troponin I 0.026 ng/mL (0.01-0.034)
[2020-03-25 17:56] LABS: Procalcitonin 0.05 ng/mL (<0.5)
[2020-03-25] MEDS: LABETALOL 20 MG/4 ML SYRINGE 10 MG IV (18:10)
[2020-03-25] MEDS: HALOPERIDOL 5 MG/ML VIAL 2 MG IV (18:18)
[2020-03-25] MEDS: SODIUM CHLORIDE 0.9% 1,000 ML 150 ML IV (18:19)
[2020-03-25] MEDS: diphenhydrAMINE 50 MG/ML VIAL 25 MG IV (18:19)
--- NOTE | 2020-03-25 18:32 | PC.NURSE ---
pt states she was seen here recently and dx with colitis. states continues to have nausea, but manageable until this am about 0430. nausea and vomiting woke her from sleeping. pt having dry heaves.
--- NOTE | 2020-03-25 18:42 | ED.NAVMDI ---
HPI - Nausea/Vomiting/Diarrhea <Jesus TEX Lai - Last Filed: 03/26/20 00:18> General Chief complaint: Nausea/Vomiting/Diarrhea Stated complaint: NAUSEA Time Seen by Provider: 03/25/20 17:12 Source: patient and family Mode of arrival: Ambulatory Limitations: no limitations History of Present Illness HPI Narrative: This is a 64 year female, former smoker, who has history of hypertension, gastric bypass presents to ED with significant other with chief complain of ongoing nausea and vomiting that she cannot tolerate fluids at home. Patient reports since gastric bypass, she has occasional nausea and vomiting and her GI specialist explained that she probably has early dumping syndrome. She was evaluated 2 days ago ED with same chief complain and was treated for nausea and vomiting with multiple doses of Zofran, Ativan and hydrated with 2 liters of IV fluid, received potassium chloride replacement and IV Solu-Medrol for colitis. CT of abdomen and pelvis test was done as well which showed infectious versus inflammatory colitis, sigmoid diverticulosis, left adrenal adenoma and moderate emphysema with a few right lung nodules. Patient reports after she was discharged to home she slept most of the night and following day. She was try to hydrate with clear liquid only today but she had recurring nausea and vomiting and chills. Her significant other reports patient's temperature ran in 99+ F at home and when she started to have chills with vomiting, thought she needs re-evaluation for colitis as return precautions. Patient had last and 1 bottle of Gatorade today. Patient reports has not been urinating much today and last void was last than 1 hour prior coming into ED. patient reports urine does not appears to be to concentrated and does not endorses urinary symptoms. Patient reports no diarrhea and had last stool on Tuesday which was loose. Patient denies chest pain, breathing difficulty. Patient reports abdomen feels full and is uncomfortable but does not have pain. Patient coughs only with emesis. Patient reports frequent hiccups. Reports Ativan or last time when she had severe nausea and vomiting. She states had taken blood pressure medications, losartan and amlodipine this morning. Patient reports when she has nausea and vomiting her blood pressure tends to elevate otherwise usually is well managed with 2 hypertensive medications. Patient is from [place] and is planning to return to home on 03/31/20. Related Data Home Medications Medication Instructions Recorded Confirmed alendronate 12 mg PO QWEEK 03/25/20 03/25/20 amlodipine 10 mg PO DAILY 03/25/20 03/26/20 levothyroxine 175 mcg PO QAM 03/25/20 03/25/20 losartan 100 mg PO DAILY 03/25/20 03/26/20 paroxetine HCl 10 mg PO QAM 03/25/20 03/25/20 paroxetine HCl 40 mg PO QAM 03/25/20 03/25/20 zolpidem 10 mg PO BEDTIME PRN 03/25/20 03/25/20 Previous Rx's Medication Instructions Recorded ondansetron 4 mg PO Q6H PRN #20 tab 03/23/20 prednisone 40 mg PO DAILY #10 tab 03/23/20 Allergies Allergy/AdvReac Type Severity Reaction Status Date / Time Penicillins Allergy Verified 03/23/20 18:10 Review of Systems <TEX Lopez - Last Filed: 03/26/20 00:18> Review of Systems Narrative: General: Denies fever, (+) chills, fatigue, malaise, sweats. HEENT: Denies sinus pain, ear pain, sore throat, difficulty swallowing, dizziness. Respiratory: Denies dyspnea, cough, wheezing, hemoptysis, sputum. Cardiovascular: Denies chest pain, palpitations, orthopnea, edema. Gastrointestinal: See HPI : Denies dysuria, frequency, incontinence, hematuria, urinary retention, (+) decreased urine output. Musculoskeletal: Denies weakness, joint pain or bony pain. Skin: Denies rash, skin lesions, or other. Neurologic: Denies weakness, headache, numbness, change in speech, confusion, seizures, incoordination. Psychiatric: No concerning psychosocial issues. 12-point review of systems is negative except for those stated above. Patient History <TEX Lopez - Last Filed: 03/26/20 00:18> Medical History (Updated 03/26/20 @ 04:53 by TEX Reveles) Diverticulosis (Acute) Emphysema lung (Acute) Hypertension (Acute) Surgical History (Updated 03/26/20 @ 04:53 by TEX Reveles) History of cholecystectomy (Acute) History of hysterectomy (Acute) History of Marii-en-Y gastric bypass (Acute) History of ventral hernia repair (Acute) Family History (Updated 03/26/20 @ 04:54 by TEX Reveles) Father Heart attack Mother COPD (chronic obstructive pulmonary disease) Brother No significant medical problems Social History household members: friend(s) Smoking Status: Former smoker Smoking Status: Former smoker alcohol intake frequency: 0-2 drinks per day Substance Use Type: does not use Exam <TEX Lopez - Last Filed: 03/26/20 00:18> Narrative Exam Narrative: GEN: Alert, oriented x 3, thin appearing and in moderate distress from nausea. Appears to be cold and having shakes. Head: Normal cephalic, atraumatic. No scalp or temporal tenderness, palpable mass or rash. EYES: Pupils are equal, round, and reactive to light and accommodation. Extraocular muscles are intact bilaterally. There is no subconjunctival hemorrhage, exudate and sclera non-icteric. ENT: Hearing grossly intact. Mucous membrane dry, no mucosal lesion. Airway patent. Neck: Trachea in midline. No JVD, non-tender without lymphadenopathy. No masses or thyroid megaly. Supple, non-tender and no meningeal signs. CARDIAC: Normal regular rate and rhythm without murmurs, gallops, or rubs. No chest wall tenderness. No peripheral edema, cyanosis or pallor. Capillary refill is less than 2 seconds. RESPIRATORY: Lungs are clear to auscultate bilaterally. No cough, wheezes, rales, or rhonchi. No stridor, respiratory distress, increase work of breathing, or accessary muscle used. ABD: Abdomen soft, nontender and non-distended. No guarding or rebound tenderness to palpate. Bowel sounds are normal in all 4 quadrants. There is no palpable masses or organomegaly. EXT: Full painless ROM of all extremities with no loss of sensation, strength, effusion or edema. SKIN: Warm, dry, normal color for patient. No erythema, lesions or rash over visible areas. BACK: Nontender without deformity or crepitance. No flank tenderness. NEUROLOGICAL: Alert and oriented to place, time and person. Sensation and motor function intact bilaterally. No facial droops, dysphasia. PSYCHIATRIC: Good judgement and reason, without hallucinations, abnormal affect or abnormal behaviors during the examination. Patient is not suicidal. Initial Vital Signs Initial Vital Signs: Vital Signs Temperature 99.0 F 03/25/20 16:43 Pulse Rate 70 03/25/20 16:43 Respiratory Rate 22 03/25/20 16:43 Blood Pressure 190/98 H 03/25/20 16:43 Pulse Oximetry 100 03/25/20 16:43 <Carolina Tipton MD - Last Filed: 03/26/20 18:32> Initial Vital Signs Initial Vital Signs: Vital Signs Temperature 99.0 F 03/25/20 16:43 Pulse Rate 70 03/25/20 16:43 Respiratory Rate 22 03/25/20 16:43 Blood Pressure 190/98 H 03/25/20 16:43 Pulse Oximetry 100 03/25/20 16:43 Scores <TEX Lopez - Last Filed: 03/26/20 00:18> GCS Kent coma scale eye opening: Spontaneous Camila coma scale verbal response: Orientated [place] coma scale motor response: Obey commands Camila coma scale total score: 15 qSOFA Altered Mental Status (GCS <15): No Respiratory rate greater than/equal to 22: Yes Systolic blood pressure less than or equal to 100: No qSOFA Total: 1 0-1 Not High Risk 1-3 High risk Course <TEX Lopez - Last Filed: 03/26/20 00:18> Orders Ordered: Acetaminophen (Tylenol) 650 mg PO Q6HR PRN PRN Reason: Fever/Mild Pain (1-3) Amlodipine Besylate (Norvasc) 10 mg PO DAILY [facility] Last Admin: 03/26/20 08:55 Dose: 10 mg Documented by: CHARLIEBONOlivia Heparin Sodium (Porcine) (Heparin) 5,000 unit SUBCUT BID [facility] Last Admin: 03/26/20 08:55 Dose: 5,000 unit Documented by: SPABONA Sodium Chloride (Normal Saline 0.9%) 1,000 mls @ 125 mls/hr IV CONT [facility] Last Admin: 03/25/20 22:52 Dose: 125 mls/hr Documented by: KELLIE Ciprofloxacin (Cipro) 400 mg in 200 mls @ 200 mls/hr IV Q24H LUIS ENRIQUE Metronidazole (Flagyl) 500 mg in 100 mls @ 100 mls/hr IV Q8H [facility] Last Admin: 03/26/20 15:51 Dose: 100 mls/hr Documented by: Infusion: 03/26/20 08:56 Dose: 0 mls/hr Documented by: PO Admin: 03/26/20 07:49 Dose: 100 mls/hr Documented by: PO Thiamine HCl 100 mg/ Sodium (Chloride) 51 mls @ 204 mls/hr IV DAILY LUIS ENRIQUE Stop: 03/28/20 09:14 Last Infusion: 03/26/20 10:17 Dose: 0 mls/hr Documented by: PO Admin: 03/26/20 09:41 Dose: 204 mls/hr Documented by: PO Levothyroxine Sodium (Synthroid) 175 mcg PO 0600 [facility] Melatonin (Melatonin) 6 mg PO BEDTIME [facility] Last Admin: 03/26/20 00:14 Dose: 6 mg Documented by: OLESYA Multivitamins (Tab-A-Veronica) 1 tab PO DAILY [facility] Naloxone HCl (Narcan) 0.2 mg IV Q2MIN PRN PRN Reason: Opiate Reversal Ondansetron HCl (Zofran) 4 mg IV Q6HR PRN PRN Reason: Nausea And Vomiting Pantoprazole Sodium (Protonix) 40 mg IV DAILY [facility] Last Admin: 03/26/20 07:50 Dose: 40 mg Documented by: PO Paroxetine HCl (Paxil) 10 mg PO DAILY [facility] Paroxetine HCl (Paxil) 40 mg PO DAILY [facility] Sodium Chloride (Normal Saline 0.9% Flush) 10 ml IV PRN PRN PRN Reason: Flush Sodium Chloride (Normal Saline 0.9% Flush) 10 ml IV BID [facility] Last Admin: 03/26/20 09:41 Dose: Not Given Documented by: PO Vitamin D (Vitamin D3) 3,000 unit PO DAILY [facility] Zolpidem Tartrate (Ambien) 10 mg PO BEDTIME PRN PRN Reason: Insomnia Discontinued Medications Calcium Carbonate/Cholecalciferol (Oyster Shell 500-Vit D3 200 Tb) 1 each PO BIDWM [facility] Cyanocobalamin (Vitamin B-12) 1,000 mcg IM NOW ONE Stop: 03/26/20 17:46 Diphenhydramine HCl (Benadryl) 25 mg IV NOW ONE Stop: 03/25/20 18:15 Last Admin: 03/25/20 18:19 Dose: 25 mg Documented by: ELIZABETH Haloperidol (Haldol) 2 mg IV Q1H PRN PRN Reason: Agitation Last Admin: 03/25/20 18:18 Dose: 2 mg Documented by: ELIZABETH Sodium Chloride (Normal Saline 0.9%) 1,000 mls @ 1,000 mls/hr IV BOLUS ONE Stop: 03/25/20 17:53 Last Infusion: 03/25/20 18:10 Dose: 0 mls/hr Documented by: Admin: 03/25/20 17:01 Dose: 1,000 mls/hr Documented by: RADHA Sodium Chloride (Normal Saline 0.9%) 1,000 mls @ 150 mls/hr IV CONT [facility] Last Admin: 03/25/20 18:19 Dose: 150 mls/hr Documented by: ELIZABETH Ciprofloxacin (Cipro) 400 mg in 200 mls @ 200 mls/hr IV Q12H [facility] Last Admin: 03/26/20 00:14 Dose: 200 mls/hr Documented by: OLESYA Labetalol HCl (Trandate) 10 mg IV NOW ONE Stop: 03/25/20 17:50 Last Admin: 03/25/20 18:10 Dose: 10 mg Documented by: ELIZABETH Lorazepam (Ativan) 0.5 mg IV NOW ONE Stop: 03/25/20 17:26 Last Admin: 03/25/20 17:36 Dose: 0.5 mg Documented by: RADHA Lorazepam (Ativan) 0.5 mg IV Q6HR PRN PRN Reason: Nausea Losartan Potassium (Cozaar) 100 mg PO DAILY [facility] Last Admin: 03/26/20 08:55 Dose: 100 mg Documented by: PO Morphine Sulfate (Morphine) 2 mg IV Q4HR PRN PRN Reason: Pain, Moderate (4-6) Ondansetron HCl (Zofran) 4 mg IV NOW ONE Stop: 03/25/20 17:26 Last Admin: 03/25/20 17:36 Dose: 4 mg Documented by: RADHA Pantoprazole Sodium (Protonix) 40 mg IV NOW ONE Stop: 03/25/20 21:41 Last Admin: 03/25/20 22:47 Dose: 40 mg Documented by: KELLIE Vital Signs Vital signs: Vital Signs - 8 hr 03/25/20 16:43 03/25/20 16:51 03/25/20 17:00 Temperature 99.0 F Pulse Rate 70 72 77 Respiratory Rate 22 24 Blood Pressure 190/98 H 228/110 H 214/99 H Pulse Oximetry 100 98 98 03/25/20 17:30 03/25/20 18:00 03/25/20 18:10 Temperature Pulse Rate 73 75 95 H Respiratory Rate 30 H 32 H Blood Pressure 203/102 H 221/104 H 221/104 H Pulse Oximetry 100 100 03/25/20 18:30 03/25/20 18:42 03/25/20 19:02 Temperature 99.1 F Pulse Rate 73 74 Respiratory Rate 22 Blood Pressure 178/94 H 167/94 H Pulse Oximetry 98 <Carolina Tipton MD - Last Filed: 03/26/20 18:32> Orders Ordered: Acetaminophen (Tylenol) 650 mg PO Q6HR PRN PRN Reason: Fever/Mild Pain (1-3) Amlodipine Besylate (Norvasc) 10 mg PO DAILY [facility] Last Admin: 03/26/20 08:55 Dose: 10 mg Documented by: PO Heparin Sodium (Porcine) (Heparin) 5,000 unit SUBCUT BID [facility] Last Admin: 03/26/20 08:55 Dose: 5,000 unit Documented by: PO Sodium Chloride (Normal Saline 0.9%) 1,000 mls @ 125 mls/hr IV CONT [facility] Last Admin: 03/25/20 22:52 Dose: 125 mls/hr Documented by: KELLIE Ciprofloxacin (Cipro) 400 mg in 200 mls @ 200 mls/hr IV Q24H [facility] Metronidazole (Flagyl) 500 mg in 100 mls @ 100 mls/hr IV Q8H [facility] Last Admin: 03/26/20 15:51 Dose: 100 mls/hr Documented by: Infusion: 03/26/20 08:56 Dose: 0 mls/hr Documented by: PO Admin: 03/26/20 07:49 Dose: 100 mls/hr Documented by: PO Thiamine HCl 100 mg/ Sodium (Chloride) 51 mls @ 204 mls/hr IV DAILY [facility] Stop: 03/28/20 09:14 Last Infusion: 03/26/20 10:17 Dose: 0 mls/hr Documented by: PO Admin: 03/26/20 09:41 Dose: 204 mls/hr Documented by: PO Levothyroxine Sodium (Synthroid) 175 mcg PO 0600 [facility] Melatonin (Melatonin) 6 mg PO BEDTIME [facility] Last Admin: 03/26/20 00:14 Dose: 6 mg Documented by: OLESYA Multivitamins (Tab-A-Veronica) 1 tab PO DAILY [facility] Naloxone HCl (Narcan) 0.2 mg IV Q2MIN PRN PRN Reason: Opiate Reversal Ondansetron HCl (Zofran) 4 mg IV Q6HR PRN PRN Reason: Nausea And Vomiting Pantoprazole Sodium (Protonix) 40 mg IV DAILY [facility] Last Admin: 03/26/20 07:50 Dose: 40 mg Documented by: PO Paroxetine HCl (Paxil) 10 mg PO DAILY [facility] Paroxetine HCl (Paxil) 40 mg PO DAILY [facility] Sodium Chloride (Normal Saline 0.9% Flush) 10 ml IV PRN PRN PRN Reason: Flush Sodium Chloride (Normal Saline 0.9% Flush) 10 ml IV BID [facility] Last Admin: 03/26/20 09:41 Dose: Not Given Documented by: PO Vitamin D (Vitamin D3) 3,000 unit PO DAILY [facility] Zolpidem Tartrate (Ambien) 10 mg PO BEDTIME PRN PRN Reason: Insomnia Discontinued Medications Calcium Carbonate/Cholecalciferol (Oyster Shell 500-Vit D3 200 Tb) 1 each PO BIDWM [facility] Cyanocobalamin (Vitamin B-12) 1,000 mcg IM NOW ONE Stop: 03/26/20 17:46 Diphenhydramine HCl (Benadryl) 25 mg IV NOW ONE Stop: 03/25/20 18:15 Last Admin: 03/25/20 18:19 Dose: 25 mg Documented by: ELIZABETH Haloperidol (Haldol) 2 mg IV Q1H PRN PRN Reason: Agitation Last Admin: 03/25/20 18:18 Dose: 2 mg Documented by: ELIZABETH Sodium Chloride (Normal Saline 0.9%) 1,000 mls @ 1,000 mls/hr IV BOLUS ONE Stop: 03/25/20 17:53 Last Infusion: 03/25/20 18:10 Dose: 0 mls/hr Documented by: Admin: 03/25/20 17:01 Dose: 1,000 mls/hr Documented by: RADHA Sodium Chloride (Normal Saline 0.9%) 1,000 mls @ 150 mls/hr IV CONT [facility] Last Admin: 03/25/20 18:19 Dose: 150 mls/hr Documented by: ELIZABETH Ciprofloxacin (Cipro) 400 mg in 200 mls @ 200 mls/hr IV Q12H [facility] Last Admin: 03/26/20 00:14 Dose: 200 mls/hr Documented by: OLESYA Labetalol HCl (Trandate) 10 mg IV NOW ONE Stop: 03/25/20 17:50 Last Admin: 03/25/20 18:10 Dose: 10 mg Documented by: ELIZABETH Lorazepam (Ativan) 0.5 mg IV NOW ONE Stop: 03/25/20 17:26 Last Admin: 03/25/20 17:36 Dose: 0.5 mg Documented by: RADHA Lorazepam (Ativan) 0.5 mg IV Q6HR PRN PRN Reason: Nausea Losartan Potassium (Cozaar) 100 mg PO DAILY [facility] Last Admin: 03/26/20 08:55 Dose: 100 mg Documented by: PO Morphine Sulfate (Morphine) 2 mg IV Q4HR PRN PRN Reason: Pain, Moderate (4-6) Ondansetron HCl (Zofran) 4 mg IV NOW ONE Stop: 03/25/20 17:26 Last Admin: 03/25/20 17:36 Dose: 4 mg Documented by: RADHA Pantoprazole Sodium (Protonix) 40 mg IV NOW ONE Stop: 03/25/20 21:41 Last Admin: 03/25/20 22:47 Dose: 40 mg Documented by: KELLIE Vital Signs Vital signs: Vital Signs - 8 hr 03/25/20 16:43 03/25/20 16:51 03/25/20 17:00 Temperature 99.0 F Pulse Rate 70 72 77 Respiratory Rate 22 24 Blood Pressure 190/98 H 228/110 H 214/99 H Pulse Oximetry 100 98 98 03/25/20 17:30 03/25/20 18:00 03/25/20 18:10 Temperature Pulse Rate 73 75 95 H Respiratory Rate 30 H 32 H Blood Pressure 203/102 H 221/104 H 221/104 H Pulse Oximetry 100 100 03/25/20 18:30 03/25/20 18:42 03/25/20 19:02 Temperature 99.1 F Pulse Rate 73 74 Respiratory Rate 22 Blood Pressure 178/94 H 167/94 H Pulse Oximetry 98 MDM - Nausea/Vomiting/Diarrhea <Jesus TEX Lai - Last Filed: 03/26/20 00:18> Differential Diagnosis Differential diagnosis: Likely other (infection colitis, nausea and vomiting, STEMI, dehydration, electrolyte imbalance) Medical Records Attestation: I reviewed the patient's medical records. Lab Data Attestation: I reviewed the patient's lab results. Result diagrams: 03/26/20 04:50 03/26/20 04:50 Labs: Lab Results 03/25/20 03/25/20 03/25/20 Range/Units 16:55 16:55 16:55 WBC 12.9 H (4.5-11.0) X10^3/uL RBC 5.15 (4.0-5.2) X10^6/uL Hgb 15.4 (12.0-16.0) g/dL Hct 46.9 H (36-46) % MCV 91.0 (80-100) fL MCH 30.0 (26-34) PG MCHC 32.9 (30-36) % RDW 14.4 (11.6-14.8) % Plt Count 262 (150-400) X10^3/uL Neut % (Auto) 75.5 H (50-75) % Lymph % (Auto) 17.9 L (25-40) % [place] % (Auto) 6.1 (3-14) % Eos % (Auto) 0.1 L (2-4) % Baso % (Auto) 0.4 (0-2) % Neut # (Auto) 9700 H (4664-1883) /uL Lymph # (Auto) 2300 (6460-4215) /uL [place] # (Auto) 800 (0-900) /uL Eos # (Auto) 0 (0-450) /uL Baso # (Auto) 100 (0-100) /uL Sodium 135 L (137-145) mmol/L Potassium 3.6 (3.4-5.1) mmol/L Chloride 99 (98-107) mmol/L Carbon Dioxide 23 (22-32) mmol/L BUN 35 H (7-17) mg/dL Creatinine 2.71 H (0.52-1.04) mg/dL Estimated GFR 17.6 L (>60) mL/min BUN/Creatinine Ratio 12.9 (6-22) Glucose 129 H (80-110) mg/dL Lactate (0.7-2.1) mmol/L Calcium 10.2 (8.4-10.2) mg/dL Magnesium (1.6-2.3) mg/dL Total Bilirubin 1.3 (0.2-1.3) mg/dL AST 25 (14-36) IU/L ALT 17 (<35) IU/L Alkaline Phosphatase 118 (38-126) U/L Total Creatine Kinase 43 (30-135) U/L CK-MB (CK-2) TNP CK-MB (CK-2) Rel Index TNP Troponin I 0.026 (0.01-0.034) ng/mL Total Protein 8.3 H (6.3-8.2) g/dL Albumin 4.5 (3.5-5.0) g/dL Globulin 3.8 (1.7-4.1) g/dL Albumin/Globulin Ratio 1.2 (1.0-2.8) Procalcitonin (<0.5) ng/mL Urine RBC (0-5/HPF) Urine WBC (0-5/HPF) Ur Squamous Epith Cells (0-5/HPF) Amorphous Sediment Urine Bacteria (None) Ur Culture Indicated? COVID-19 PCR (Negative) 03/25/20 03/25/20 03/25/20 Range/Units 16:55 16:55 16:55 WBC (4.5-11.0) X10^3/uL RBC (4.0-5.2) X10^6/uL Hgb (12.0-16.0) g/dL Hct (36-46) % MCV (80-100) fL MCH (26-34) PG MCHC (30-36) % RDW (11.6-14.8) % Plt Count (150-400) X10^3/uL Neut % (Auto) (50-75) % Lymph % (Auto) (25-40) % [place] % (Auto) (3-14) % Eos % (Auto) (2-4) % Baso % (Auto) (0-2) % Neut # (Auto) (6349-8300) /uL Lymph # (Auto) (3485-3137) /uL [place] # (Auto) (0-900) /uL Eos # (Auto) (0-450) /uL Baso # (Auto) (0-100) /uL Sodium (137-145) mmol/L Potassium (3.4-5.1) mmol/L Chloride (98-107) mmol/L Carbon Dioxide (22-32) mmol/L BUN (7-17) mg/dL Creatinine (0.52-1.04) mg/dL Estimated GFR (>60) mL/min BUN/Creatinine Ratio (6-22) Glucose (80-110) mg/dL Lactate 2.7 H (0.7-2.1) mmol/L Calcium (8.4-10.2) mg/dL Magnesium 1.8 (1.6-2.3) mg/dL Total Bilirubin (0.2-1.3) mg/dL AST (14-36) IU/L ALT (<35) IU/L Alkaline Phosphatase (38-126) U/L Total Creatine Kinase (30-135) U/L CK-MB (CK-2) CK-MB (CK-2) Rel Index Troponin I (0.01-0.034) ng/mL Total Protein (6.3-8.2) g/dL Albumin (3.5-5.0) g/dL Globulin (1.7-4.1) g/dL Albumin/Globulin Ratio (1.0-2.8) Procalcitonin 0.05 (<0.5) ng/mL Urine RBC (0-5/HPF) Urine WBC (0-5/HPF) Ur Squamous Epith Cells (0-5/HPF) Amorphous Sediment Urine Bacteria (None) Ur Culture Indicated? COVID-19 PCR (Negative) 03/25/20 03/25/20 Range/Units 18:15 18:38 WBC (4.5-11.0) X10^3/uL RBC (4.0-5.2) X10^6/uL Hgb (12.0-16.0) g/dL Hct (36-46) % MCV (80-100) fL MCH (26-34) PG MCHC (30-36) % RDW (11.6-14.8) % Plt Count (150-400) X10^3/uL Neut % (Auto) (50-75) % Lymph % (Auto) (25-40) % [place] % (Auto) (3-14) % Eos % (Auto) (2-4) % Baso % (Auto) (0-2) % Neut # (Auto) (2625-0431) /uL Lymph # (Auto) (9154-0604) /uL [place] # (Auto) (0-900) /uL Eos # (Auto) (0-450) /uL Baso # (Auto) (0-100) /uL Sodium (137-145) mmol/L Potassium (3.4-5.1) mmol/L Chloride (98-107) mmol/L Carbon Dioxide (22-32) mmol/L BUN (7-17) mg/dL Creatinine (0.52-1.04) mg/dL Estimated GFR (>60) mL/min BUN/Creatinine Ratio (6-22) Glucose (80-110) mg/dL Lactate (0.7-2.1) mmol/L Calcium (8.4-10.2) mg/dL Magnesium (1.6-2.3) mg/dL Total Bilirubin (0.2-1.3) mg/dL AST (14-36) IU/L ALT (<35) IU/L Alkaline Phosphatase (38-126) U/L Total Creatine Kinase (30-135) U/L CK-MB (CK-2) CK-MB (CK-2) Rel Index Troponin I (0.01-0.034) ng/mL Total Protein (6.3-8.2) g/dL Albumin (3.5-5.0) g/dL Globulin (1.7-4.1) g/dL Albumin/Globulin Ratio (1.0-2.8) Procalcitonin (<0.5) ng/mL Urine RBC 0-1/hpf (0-5/HPF) Urine WBC 0-1/hpf (0-5/HPF) Ur Squamous Epith Cells 1-5 /hpf (0-5/HPF) Amorphous Sediment 1+ Urine Bacteria Occasional (0-1) (None) Ur Culture Indicated? Cult not indicated COVID-19 PCR Negative (Negative) Urine Dip Bedside Urine Glucose 100 mg/dl Bedside Urine Bilirubin + 1 Bedside Urine Ketone - Negative Urine Specific [place] 1.015 Bedside Urine Occult Blood +/- Bedside Urine pH 6.0 Bedside Urine Protein ++ 100 Bedside Urine Urobilinogen - Negative Bedside Urine Nitrite - Negative Bedside Urine Leukocytes - Negative Esterase ECG Data Attestation: I personally reviewed and interpreted this ECG as follows: Prior ECG tracings: available for review Interpretation: Sinus rhythm rate at 73. Left dominant axis. Widened QRS. AL interval 198, QRS duration 126, QT/QTC 396/436 Peak T waves V3-V4 No acute ST changes. No changes from 2 days ago. MDM Narrative Medical decision making narrative: This is a 64 year female who presents to ED with recurring and profound nausea and vomiting. She was evaluated 2 days ago with a same chief complain and discharged to home after IV hydration, after nausea and vomiting was managed with prednisone to treat colitis. Patient reports was unable to tolerate p.o. clear liquid fluids at home and when she developed chills and mildly elevated temperature to 99+ F, she return to ED for an re-evaluation and treatment. EKG was normal sinus rhythm rate at 73 with widened QRS duration without acute ST changes. Temperature is 99 degree F with slight tachypnea of 22 and hypertension of 190/98. Patient denies chest pain, breathing difficulty or abdominal pain. Mild leukocytosis of 12.9 which is increased from 9.3 2 days ago with elevated neutrophil of 9700. Concerned for infection or worsening colitis by patient is currently taking prednisone which could increased WBC. Initial lactate of 2.7 with normal procalcitonin. Normal potassium of 3.6 and slightly low hyponatremia of 135. Significantly elevated BUN of 35 with acutely increased creatinine of 2.71 from 1.03 2 days ago with eGFR of 17.6 from 53.6 indicating acute kidney injury likely from dehydration. Troponin is 0.026. Chest x-ray does not show acute cardiopulmonary process. Urine is negative for leuko esterase or nitrites indicating infection. The patient was medicated with IV fluid 1 L normal saline bolus and followed with gentle rehydration rate at 150 mL/hour. Acute nausea vomiting was medicated with Zofran and Ativan which was not effective. Patient was given additional medication Benadryl 25 and 2 mg Haldol which improved patient's symptoms significantly. Blood pressure had increased upto 228/110 and given labetalol 10 mg IV and this has improved to 178/94. Patient reports feeling much improved. Discussed lab findings and recurring gentle IV hydration and monitoring kidney function test while hospitalized with patient and significant other and they both agree with the treatment plan. 1814- Dr. Gayle consulted with left findings and patient's HPI, she kindly accepted patient's care to treat SAV and dehydration and to monitor kidney function test, abdominal pain for colitis whether the patient requires antibiotic medication. Dr. Gayle defered repeating CT Abdomen/Pelvis at this time. <Carolina Tipton MD - Last Filed: 03/26/20 18:32> Lab Data Labs: Lab Results 03/25/20 03/25/20 03/25/20 Range/Units 16:55 16:55 16:55 WBC 12.9 H (4.5-11.0) X10^3/uL RBC 5.15 (4.0-5.2) X10^6/uL Hgb 15.4 (12.0-16.0) g/dL Hct 46.9 H (36-46) % MCV 91.0 (80-100) fL MCH 30.0 (26-34) PG MCHC 32.9 (30-36) % RDW 14.4 (11.6-14.8) % Plt Count 262 (150-400) X10^3/uL Neut % (Auto) 75.5 H (50-75) % Lymph % (Auto) 17.9 L (25-40) % [place] % (Auto) 6.1 (3-14) % Eos % (Auto) 0.1 L (2-4) % Baso % (Auto) 0.4 (0-2) % Neut # (Auto) 9700 H (5626-4572) /uL Lymph # (Auto) 2300 (9744-6319) /uL [place] # (Auto) 800 (0-900) /uL Eos # (Auto) 0 (0-450) /uL Baso # (Auto) 100 (0-100) /uL Sodium 135 L (137-145) mmol/L Potassium 3.6 (3.4-5.1) mmol/L Chloride 99 (98-107) mmol/L Carbon Dioxide 23 (22-32) mmol/L BUN 35 H (7-17) mg/dL Creatinine 2.71 H (0.52-1.04) mg/dL Estimated GFR 17.6 L (>60) mL/min BUN/Creatinine Ratio 12.9 (6-22) Glucose 129 H (80-110) mg/dL Lactate (0.7-2.1) mmol/L Calcium 10.2 (8.4-10.2) mg/dL Magnesium (1.6-2.3) mg/dL Total Bilirubin 1.3 (0.2-1.3) mg/dL AST 25 (14-36) IU/L ALT 17 (<35) IU/L Alkaline Phosphatase 118 (38-126) U/L Total Creatine Kinase 43 (30-135) U/L CK-MB (CK-2) TNP CK-MB (CK-2) Rel Index TNP Troponin I 0.026 (0.01-0.034) ng/mL Total Protein 8.3 H (6.3-8.2) g/dL Albumin 4.5 (3.5-5.0) g/dL Globulin 3.8 (1.7-4.1) g/dL Albumin/Globulin Ratio 1.2 (1.0-2.8) Procalcitonin (<0.5) ng/mL Urine RBC (0-5/HPF) Urine WBC (0-5/HPF) Ur Squamous Epith Cells (0-5/HPF) Amorphous Sediment Urine Bacteria (None) Ur Culture Indicated? COVID-19 PCR (Negative) 03/25/20 03/25/20 03/25/20 Range/Units 16:55 16:55 16:55 WBC (4.5-11.0) X10^3/uL RBC (4.0-5.2) X10^6/uL Hgb (12.0-16.0) g/dL Hct (36-46) % MCV (80-100) fL MCH (26-34) PG MCHC (30-36) % RDW (11.6-14.8) % Plt Count (150-400) X10^3/uL Neut % (Auto) (50-75) % Lymph % (Auto) (25-40) % [place] % (Auto) (3-14) % Eos % (Auto) (2-4) % Baso % (Auto) (0-2) % Neut # (Auto) (8658-9394) /uL Lymph # (Auto) (2556-1178) /uL [place] # (Auto) (0-900) /uL Eos # (Auto) (0-450) /uL Baso # (Auto) (0-100) /uL Sodium (137-145) mmol/L Potassium (3.4-5.1) mmol/L Chloride (98-107) mmol/L Carbon Dioxide (22-32) mmol/L BUN (7-17) mg/dL Creatinine (0.52-1.04) mg/dL Estimated GFR (>60) mL/min BUN/Creatinine Ratio (6-22) Glucose (80-110) mg/dL Lactate 2.7 H (0.7-2.1) mmol/L Calcium (8.4-10.2) mg/dL Magnesium 1.8 (1.6-2.3) mg/dL Total Bilirubin (0.2-1.3) mg/dL AST (14-36) IU/L ALT (<35) IU/L Alkaline Phosphatase (38-126) U/L Total Creatine Kinase (30-135) U/L CK-MB (CK-2) CK-MB (CK-2) Rel Index Troponin I (0.01-0.034) ng/mL Total Protein (6.3-8.2) g/dL Albumin (3.5-5.0) g/dL Globulin (1.7-4.1) g/dL Albumin/Globulin Ratio (1.0-2.8) Procalcitonin 0.05 (<0.5) ng/mL Urine RBC (0-5/HPF) Urine WBC (0-5/HPF) Ur Squamous Epith Cells (0-5/HPF) Amorphous Sediment Urine Bacteria (None) Ur Culture Indicated? COVID-19 PCR (Negative) 03/25/20 03/25/20 Range/Units 18:15 18:38 WBC (4.5-11.0) X10^3/uL RBC (4.0-5.2) X10^6/uL Hgb (12.0-16.0) g/dL Hct (36-46) % MCV (80-100) fL MCH (26-34) PG MCHC (30-36) % RDW (11.6-14.8) % Plt Count (150-400) X10^3/uL Neut % (Auto) (50-75) % Lymph % (Auto) (25-40) % [place] % (Auto) (3-14) % Eos % (Auto) (2-4) % Baso % (Auto) (0-2) % Neut # (Auto) (5066-0208) /uL Lymph # (Auto) (7069-8797) /uL [place] # (Auto) (0-900) /uL Eos # (Auto) (0-450) /uL Baso # (Auto) (0-100) /uL Sodium (137-145) mmol/L Potassium (3.4-5.1) mmol/L Chloride (98-107) mmol/L Carbon Dioxide (22-32) mmol/L BUN (7-17) mg/dL Creatinine (0.52-1.04) mg/dL Estimated GFR (>60) mL/min BUN/Creatinine Ratio (6-22) Glucose (80-110) mg/dL Lactate (0.7-2.1) mmol/L Calcium (8.4-10.2) mg/dL Magnesium (1.6-2.3) mg/dL Total Bilirubin (0.2-1.3) mg/dL AST (14-36) IU/L ALT (<35) IU/L Alkaline Phosphatase (38-126) U/L Total Creatine Kinase (30-135) U/L CK-MB (CK-2) CK-MB (CK-2) Rel Index Troponin I (0.01-0.034) ng/mL Total Protein (6.3-8.2) g/dL Albumin (3.5-5.0) g/dL Globulin (1.7-4.1) g/dL Albumin/Globulin Ratio (1.0-2.8) Procalcitonin (<0.5) ng/mL Urine RBC 0-1/hpf (0-5/HPF) Urine WBC 0-1/hpf (0-5/HPF) Ur Squamous Epith Cells 1-5 /hpf (0-5/HPF) Amorphous Sediment 1+ Urine Bacteria Occasional (0-1) (None) Ur Culture Indicated? Cult not indicated COVID-19 PCR Negative (Negative) Urine Dip Bedside Urine Glucose 100 mg/dl Bedside Urine Bilirubin + 1 Bedside Urine Ketone - Negative Urine Specific [place] 1.015 Bedside Urine Occult Blood +/- Bedside Urine pH 6.0 Bedside Urine Protein ++ 100 Bedside Urine Urobilinogen - Negative Bedside Urine Nitrite - Negative Bedside Urine Leukocytes - Negative Esterase Discharge Plan Departure Patient Disposition: Admitted As Inpatient Clinical Impression: Acute kidney injury, Dehydration, Hypertensive crisis Nausea & vomiting Qualifiers: Vomiting type: unspecified Vomiting Intractability: unspecified Qualified Code(s): R11.2 - Nausea with vomiting, unspecified Discharge Date/Time: 03/25/20 20:32 Admit Date/Time: 03/25/20 19:14 Admit Provider: Bethany Gayle <Carolina Tipton MD - Last Filed: 03/26/20 18:32> Cosign ED Attending Cosignature Attestation: I was immediately available in the department for consultation throughout this patient's visit. I agree with documentation as above. Carolina Tipton MD
[2020-03-25 19:09] LABS: Amorphous Sediment Urine 1+; Bacteria Urine Occasional (0-1); Culture Indicated Urine Cult Not Indicated; RBC Urine 0-1/HPF (0-5/HPF); Squamous Epithelial Cell Urine 1-5 /HPF (0-5/HPF); WBC Urine 0-1/HPF (0-5/HPF)
[2020-03-25 19:22] LABS: COVID19 -Nasal RAPID Negative (Negative)
[2020-03-25 19:29] LABS: Reflexed Lactate in 2 Hours Y
[2020-03-25 20:12] LABS: Lactate 2HR (Lactic Acid Rflx) 0.8 mmol/L (0.7-2.1)
[2020-03-25 22:12] LABS: Magnesium 1.8 mg/dL (1.6-2.3)
--- NOTE | 2020-03-25 22:42 | P.HP_ITS ---
History of Present Illness History of Present Illness Date Patient Seen: 03/25/20 Time Patient Seen: 22:29 Chief complaint: NAUSEA Narrative: Ms. Adri Mendoza is a 64-year-old female visiting from [place] with history significant for hypertension, emphysema, diverticulosis and status post Marii-en-Y gastric bypass 8 years ago presents to the ER for persistent nausea vomiting. The patient was seen in the ER 2 days ago after onset of severe nausea vomiting following eating lunch at [employer] earlier that day. The patient was treated with Zofran Ativan and IV fluids and discharged home. The patient states that she has had frequent episodes of nausea vomiting occurring multiple times per month for the last 2 years. She reports having been evaluated by gastroenterology in undergone multiple EGD without identified occasion of etiology. The patient reports today associated symptoms of chills but denies abdominal pain, urinary symptoms or diarrhea. She has had no complaints of hematemesis, hematochezia or melena. She has had no headaches or dizziness and denies nasal congestion or sore throat. She has had no known COVID-19 exposures. She denies complaints of chest pain or palpitations, shortness of breath cough or wheezing. Her nausea improved transiently following treatment in the ER 2 days ago. She presents is hypertens ishan to the ER and states she has been unable to keep down her antihypertensive medication. Upon arrival to the ER the patient has a temperature 99.0?, heart rate of 70, blood pressure 190/98, respirations 22 and saturation 100%. Chest x-ray is obtained with no acute cardiopulmonary findings. She had a CT scan done under visit 2 days ago 03/23/2020 which finds mild wall thickening and questionable pericolonic inflammation involving the proximal colon and proximal transverse colon, finding suggestive of infectious or inflammatory colitis, sigmoid diverticulitis without acute diverticulitis. On laboratory analysis the patient has elevated white count at 12.9, hemoglobin of 15.4, hematocrit of 46.9 and platelets of 262. Her electrolytes are all within normal limits with a BUN of 35 and creatinine of 2.71. She has a total bilirubin 1.3, AST of 25, ALT 17 alkaline phosphatase of 118. Albumin is 4.5. Lactic acid is 0.8. Procalcitonin is 0.05. Total CK is 43 and troponin is 0.026. In the ER the patient received normal saline bolus, Ativan, Zofran, labetalol, Benadryl and Haldol. COVID-19 Ng is negative the patient is admitted to the medicine service for intractable nausea and vomiting with acute kidney injury and hypertensive urgency. Patient History Medical History (Updated 03/26/20 @ 04:53 by TEX Reveles) Diverticulosis (Acute) Emphysema lung (Acute) Hypertension (Acute) Surgical History (Updated 03/26/20 @ 04:53 by TEX Reveles) History of cholecystectomy (Acute) History of hysterectomy (Acute) History of Marii-en-Y gastric bypass (Acute) History of ventral hernia repair (Acute) Family & Social History Family History (Updated 03/26/20 @ 04:54 by TEX Reveles) Father Heart attack Mother COPD (chronic obstructive pulmonary disease) Brother No significant medical problems Tobacco & Substance use: Smoking Status Former smoker alcohol intake frequency 0-2 drinks per day Substance Use Type does not use Meds Home Medications and Allergies Home Medications Medication Instructions Recorded Confirmed Type ondansetron 4 mg PO Q6H PRN #20 tab 03/23/20 03/25/20 Rx prednisone 40 mg PO DAILY #10 tab 03/23/20 03/25/20 Rx alendronate 12 mg PO QWEEK 03/25/20 03/25/20 History amlodipine 03/25/20 History levothyroxine 175 mcg PO QAM 03/25/20 03/25/20 History losartan 03/25/20 History paroxetine HCl 10 mg PO QAM 03/25/20 03/25/20 History paroxetine HCl 40 mg PO QAM 03/25/20 03/25/20 History zolpidem 10 mg PO BEDTIME PRN 03/25/20 03/25/20 History Allergies Allergy/AdvReac Type Severity Reaction Status Date / Time Penicillins Allergy Verified 03/23/20 18:10 Review of Systems Review of Systems ROS: Yes All systems reviewed with the patient and are negative except as otherwise documented Exam Vital Signs (past 8 hours): - 03/25/20 16:43 03/25/20 16:51 03/25/20 17:00 Temperature 99.0 F Pulse Rate 70 72 77 Respiratory Rate 22 24 Blood Pressure 190/98 H 228/110 H 214/99 H Pulse Oximetry 100 98 98 03/25/20 17:30 03/25/20 18:00 03/25/20 18:10 Temperature Pulse Rate 73 75 95 H Respiratory Rate 30 H 32 H Blood Pressure 203/102 H 221/104 H 221/104 H Pulse Oximetry 100 100 03/25/20 18:30 03/25/20 18:42 03/25/20 19:02 Temperature 99.1 F Pulse Rate 73 74 Respiratory Rate 22 Blood Pressure 178/94 H 167/94 H Pulse Oximetry 98 03/25/20 20:10 03/25/20 21:40 Temperature 98.3 F Pulse Rate 77 53 L Respiratory Rate 14 17 Blood Pressure 97/61 115/73 Pulse Oximetry 97 98 Oxygen Delivery Method Room Air Oxygen Flow Rate 0 Narrative Exam Narrative: GENERAL APPEARANCE: well developed, well nourished, uncomfortable appearing. HEENT: Normocephalic, PERRLA, conjunctiva clear, EOMs intact without nystagmus, mucous membranes are dry and pink without lesions or exudate. NECK/THYROID: neck supple, no JVD, no carotid bruit, no thyromegaly, trachea midline. LYMPH NODES: no cervical or supraclavicular lymphadenopathy. SKIN: [place], warm and dry, no visible lesions, rashes, ulcerations or petechiae. HEART: regular rate and rhythm, S1-S2, 1/6 systolic murmur, no rubs or gallops, brisk capillary refill, no edema LUNGS: clear to auscultation bilaterally, no coarseness crackles or wheezing, no cough present CHEST: Symmetrical movement, no accessory muscle use, good tidal volume. ABDOMEN: Soft, no distention, no abdominal tenderness, no guarding or peritoneal signs, no organomegaly, no flank or suprapubic tenderness, active bowel tones. BACK: Normal curvature, nontender to palpation. EXTREMITIES: moves all extremities, strength is 5/5 and symmetrical, no deformities or joint effusions. NEUROLOGIC: AAO x4, no focal neurologic deficits, sensation intact to light touch, hearing grossly normal to speech. PSYCH: Good judgment, good insight, linear thought process, cooperative, appropriate with stable behavior Objective Labs Result Diagrams: 03/25/20 16:55 03/25/20 16:55 Labs: Laboratory Results - last 24 hr 03/25/20 03/25/20 03/25/20 16:55 16:55 16:55 WBC 12.9 H RBC 5.15 Hgb 15.4 Hct 46.9 H MCV 91.0 MCH 30.0 MCHC 32.9 RDW 14.4 Plt Count 262 Neut % (Auto) 75.5 H Lymph % (Auto) 17.9 L [place] % (Auto) 6.1 Eos % (Auto) 0.1 L Baso % (Auto) 0.4 Neut # (Auto) 9700 H Lymph # (Auto) 2300 [place] # (Auto) 800 Eos # (Auto) 0 Baso # (Auto) 100 Sodium 135 L Potassium 3.6 Chloride 99 Carbon Dioxide 23 BUN 35 H Creatinine 2.71 H Estimated GFR 17.6 L BUN/Creatinine Ratio 12.9 Glucose 129 H Lactate Calcium 10.2 Magnesium Total Bilirubin 1.3 AST 25 ALT 17 Alkaline Phosphatase 118 Total Creatine Kinase 43 CK-MB (CK-2) TNP CK-MB (CK-2) Rel Index TNP Troponin I 0.026 Total Protein 8.3 H Albumin 4.5 Globulin 3.8 Albumin/Globulin Ratio 1.2 Procalcitonin Urine RBC Urine WBC Ur Squamous Epith Cells Amorphous Sediment Urine Bacteria Ur Culture Indicated? COVID-19 PCR 03/25/20 03/25/20 03/25/20 16:55 16:55 16:55 WBC RBC Hgb Hct MCV MCH MCHC RDW Plt Count Neut % (Auto) Lymph % (Auto) [place] % (Auto) Eos % (Auto) Baso % (Auto) Neut # (Auto) Lymph # (Auto) [place] # (Auto) Eos # (Auto) Baso # (Auto) Sodium Potassium Chloride Carbon Dioxide BUN Creatinine Estimated GFR BUN/Creatinine Ratio Glucose Lactate 2.7 H Calcium Magnesium 1.8 Total Bilirubin AST ALT Alkaline Phosphatase Total Creatine Kinase CK-MB (CK-2) CK-MB (CK-2) Rel Index Troponin I Total Protein Albumin Globulin Albumin/Globulin Ratio Procalcitonin 0.05 Urine RBC Urine WBC Ur Squamous Epith Cells Amorphous Sediment Urine Bacteria Ur Culture Indicated? COVID-19 PCR 03/25/20 03/25/20 03/25/20 18:15 18:38 19:53 WBC RBC Hgb Hct MCV MCH MCHC RDW Plt Count Neut % (Auto) Lymph % (Auto) [place] % (Auto) Eos % (Auto) Baso % (Auto) Neut # (Auto) Lymph # (Auto) [place] # (Auto) Eos # (Auto) Baso # (Auto) Sodium Potassium Chloride Carbon Dioxide BUN Creatinine Estimated GFR BUN/Creatinine Ratio Glucose Lactate 0.8 Calcium Magnesium Total Bilirubin AST ALT Alkaline Phosphatase Total Creatine Kinase CK-MB (CK-2) CK-MB (CK-2) Rel Index Troponin I Total Protein Albumin Globulin Albumin/Globulin Ratio Procalcitonin Urine RBC 0-1/hpf Urine WBC 0-1/hpf Ur Squamous Epith Cells 1-5 /hpf Amorphous Sediment 1+ Urine Bacteria Occasional (0-1) Ur Culture Indicated? Cult not indicated COVID-19 PCR Negative Assessment & Plan Assessment & Plan narrative: This is a 64-year-old female patient who returns the ER today after being seen 2 days ago for persistent nausea vomiting . 1. Cyclic nausea and vomiting of unknown etiology, present on admission, active. -patient with a history of Marii-en-Y gastric bypass 8 years ago and has developed cyclic vomiting for the last 2 years with multiple episodes per month. The patient has been evaluated by gastroenterology and investigated with EGD with no clear etiology. -symptoms are controlled in the emergency department with multiple medications including Zofran, Ativan and Benadryl. -ordered Zofran 4 mg every 6 hours as needed, Ativan 0.5 mg every 6 hours as needed. -NPO diet 2. Colitis, unclear if inflammatory versus infectious, present on admission, active. -patient with nausea vomiting persisting longer than typical and refractory to treatment when seen in the ER on . -CT scan of identifies ascending proximal transverse colitis and may be contr ibutory to the patient's persistent symptoms. She has had no complaints of diarrhea or foul-smelling stool. -patient with elevated white blood cell count of 12.9, procalcitonin is 0.05. -patient has penicillin allergy will start Cipro 400 mg every 12 hours. -will recheck CBC and procalcitonin in the morning 3. Acute kidney injury secondary to dehydration, present on admission, active. -acute kidney injury secondary to protracted nausea and vomiting. -creatinine on admission labs is 2.71, 2 days ago on 03/23/2020 creatinine was 0 will rehydrate patient. -patient received normal saline bolus in the emergency department. -will continue to rehydrate the patient with normal saline at 125 cc/hour. -will follow renal function on chemistries in the morning 4. Essential hypertension, chronic, stable. -Patient with elevated blood pressure secondary to vomiting up antihypertensive medications. -patient denies headache, chest pain or shortness of breath. -patient received labetalol 10 mg in the ER with marked did reduction in blood pressure. -will continue patient's home medications of losartan 100 mg and amlodipine 10 mg daily. VTE prophylaxis: Bilateral SCDs, IV fluid: Normal saline 125 cc/hour Diet: NPO Code status: Full code, patient's is her surrogate decision maker. The patient is admitted to the hospital due to the severity of symptoms and worsening condition failing outpatient treatment. Patient is admitted as an inpatient with expected length of stay to be greater than 2 midnights. Scores GCS [place] coma scale eye opening: Spontaneous [place] coma scale verbal response: Orientated [place] coma scale motor response: Obey commands [place] coma scale total score: 15
[2020-03-25] MEDS: PANTOPRAZOLE 40 MG VIAL IV (22:47)
[2020-03-25] MEDS: SODIUM CHLORIDE 0.9% 1,000 ML 125 ML IV (22:52)
[2020-03-26] VITALS (7 sets, daily range): BP systolic 107–163; BP diastolic 73–90; PULSE 49–57; RESP 16–20; TEMP 36.1–37.2; O2SAT 98–100
--- NOTE | 2020-03-26 00:12 | PC.NURSE ---
Late entry Pt admitted to 224 from the ER at 2039 alert and oriented to and hospital. Denies n/v or pain at this time. to BR to void gait steady. Hx of cardiac bypass tele placed with SB rate 55. [place] from [place] and staying with friend that is here at [place]. Stephane TESFAYE here to see pt orders rc'd
[2020-03-26] MEDS: CIPROFLOXACIN 400 MG/200 ML PIGGYBACK 200 MG IV (00:14)
[2020-03-26] MEDS: MELATONIN 3 MG TABLET 6 MG PO (00:14)
--- NOTE | 2020-03-26 05:15 | PC.NURSE ---
Assumed care of patient at 0300, patient resting with eyes closed, breathing unlabored. Patient on RA, continuous pulse ox on. SCD's off for sleep. IV infusing NS at 125cc/hr. Hung Abx not started, infusion started. Patient remains NPO. Denies pain. Call light in reach. Belongings in reach.
[2020-03-26 05:55] LABS: Add Manual Diff / Slide Review NO; Basophils Absolute Auto 0 /uL (0-100); Basophils Percent Auto 0.4 % (0-2); Eosinophils Absolute Auto 0 /uL (0-450); Eosinophils Percent Auto 0.5 % (2-4); Hematocrit 34.6 % (36-46); Hemoglobin 11.3 g/dL (12.0-16.0); Lymphocytes Absolute Auto 2300 /uL (1100-4500); Lymphocytes Percent Auto 27.6 % (25-40); Mean Corpuscular HGB Conc 32.6 % (30-36); Monocytes Absolute Auto 700 /uL (0-900); Monocytes Percent Auto 8.8 % (3-14); Neutrophils Absolute Auto 5300 /uL (1500-7000); Neutrophils Percent Auto 62.7 % (50-75); Platelet Count 199 X10^3/uL (150-400); Red Blood Cell Count 3.76 X10^6/uL (4.0-5.2); Red Cell Distribution Width 14.5 % (11.6-14.8); White Blood Cell Count 8.4 X10^3/uL (4.5-11.0)
[2020-03-26 06:15] LABS: BUN Creatinine Ratio 15.2 (6-22); Carbon Dioxide 24 mmol/L (22-32); Chloride 107 mmol/L (98-107); Glucose 88 mg/dL (80-110); HEMOLYSIS < 15 (0-50); Potassium 3.6 mmol/L (3.4-5.1); Sodium 137 mmol/L (137-145)
[2020-03-26 07:21] LABS: Procalcitonin 0.07 ng/mL (<0.5)
[2020-03-26] MEDS: metroNIDAZOLE 500 MG/100 ML PIGGYBACK 100 MG IV ×2 (07:49→15:51)
[2020-03-26] MEDS: PANTOPRAZOLE 40 MG VIAL IV (07:50)
[2020-03-26 08:17] LABS: TSH w/ Reflex to FT4 0.05 uIU/mL (0.47-4.68)
[2020-03-26] MEDS: LOSARTAN 50 MG TABLET 100 MG PO (08:55)
[2020-03-26] MEDS: AMLODIPINE 5 MG TABLET 10 MG PO (08:55)
[2020-03-26] MEDS: HEPARIN 5,000 UNIT/ML VIAL 5000 UNIT SUBCUT ×2 (08:55→20:54)
--- NOTE | 2020-03-26 08:57 | DIET.PN ---
Addendum entered by Kim Ellis 03/26/20 14:53: pt should have low sugar meals r/t dumping syndrome, updated kitchen. Pt would like B12 injection as she is overdue and will be travelling home to [place] in near future. Discussed bariatric supplements c pt. Barriers to continued use were taking too many pills every day for various conditions and feeling like her health was good so not needing. Reiterated lifelong need for supps. Suggested chewable MVI, Vit D drops, B12 injections, bariatric calcium chocolate chews to eat after meals (preferred timing) to reduce pill number. Pt very thankful for hospitalist adding supps to order to get her started then will consider alternate products once at home in [place]. Original Note: Dietary Progress Note Assessment: 64y F s/p RYGB (8y ago) c chief complain of ongoing nausea and vomiting referred to nutrition for same. Pt had RYGB 8y ago and took supplements as directed until 2y ago when she stopped all required post-bariatric supplementation. Pt drinks etoh 5x/w. Pt started getting worsening N/V a year or more ago, now to the point she could not keep fluids down. Pt here visiting friend from [place]. Pt reports dumping syndrome and seems to occur with all kinds of foods (kimmy high simple carb, fried foods). Pt reports not feeling hunger. Pt not taking PRO supp drinks. Pt had first b12 injection last month. Pt started at 246# and has maintained current weight of 125-130# for 8y. Usual Day: skips breakfast (never hungry) or grits, sometimes eggs L: lunchable d: steak, baked potato, some meals at home, some eating out HT: 160cm WT: 56kg UBW: 56kg BMI: 21.9 Labs: BUN 32 H, Cr 2.11 H, eGFR 23.4 Nutrition Diagnosis: nausea/vomiting r/t suspected nutrient deficiencies (thiamine) aeb pt s/p RYGB c limited duodenum absorption of B1, regular etoh use, no current bariatric supplementation, pt noticed N/V worsening after stopping supps. Interventions: 1. Discussed importance of lifelong reliance on bariatric supplementation to avoid nutritional deficiencies (MVI (containing b1), calcium, vit d, [id number]/injection. 2. Discussed high risk for thiamine deficiency c etoh consumption because of post-bypass status and no current MVI supplementation use. 3. Discussed importance of ensuring adequate protein intake r/t small stomach pouch with poor nutrient absorption. 4. Recc ONS Ensure Max (bariatric formula) when diet advances. Diet Order: clears EER: 60g PRO/d (1g/kg post bariatric) Monitoring/Evaluations: RD to f/u after lunch for bariatric supplementation education
[2020-03-26] MEDS: THIAMINE 100 MG in SODIUM CHLORIDE 0.9% 50 ML 204 ML IV (09:41)
[2020-03-26 10:02] LABS: Free T4, Direct Thyroxine 1.64 ng/dL (0.78-2.19)
[2020-03-26 10:27] LABS: Blood Urea Nitrogen 32 mg/dL (7-17); Calcium 8.3 mg/dL (8.4-10.2); Estimated Glomerular Filt Rate 23.4 mL/min (>60)
[2020-03-26 10:29] LABS: Bacteria Urine None Seen; RBC Urine None Seen (0-5/HPF); WBC Urine None Seen (0-5/HPF)
[2020-03-26 10:30] LABS: Appearance Urine UA CLEAR; Bilirubin Urine UA NEGATIVE (NEGATIVE); Color Urine UA YELLOW; Glucose Urine UA TRACE g/dL (Negative); Ketones Urine UA NEGATIVE (NEGATIVE); Leukocyte Esterase Urine UA NEGATIVE (NEGATIVE); Nitrite Urine UA NEGATIVE (Negative); Occult Blood Urine UA NEGATIVE (Negative); Protein Urine UA 1+ (Negative); Urobilinogen Urine UA 0.2 E.U./dL (0.2)
[2020-03-26 10:35] LABS: Culture Indicated Urine Cult Not Indicated; Squamous Epithelial Cell Urine 5-10 /HPF (0-5/HPF)
--- NOTE | 2020-03-26 10:44 | PC.NURSE ---
Patient alert, oriented, denies pain and nausea, tolerated clear liquid diet without difficulty. Ambulating in room, gait steady.
--- NOTE | 2020-03-26 14:42 | PM.PN.1 ---
Subjective Subjective Date Patient Seen: 03/26/20 Interval history: Adri Mendoza is a 64-year-old female visiting from [place] with a past medical history significant for hypertension, emphysema, diverticulosis, morbid obesity status post Marii-en-Y gastric bypass 8 years ago, and recent intermittent cyclic vomiting syndrome over the last 1-2 years who presented to the ED for persistent nausea and vomiting. The patient is resting in bed comfortably. She reports that her nausea and vomiting have resolved. She is tolerating clear liquid diet. Plan to continue to slowly advance diet as tolerated. She reports that she believes this is from ?early dumping? and rapid gastric emptying. She reports that she has had cyclic vomiting for 1-1.5 years. She did have immediate complication of nausea and vomiting after gastric bypass due to small pouch which needed dilatation and resolved thereafter. She recently had an EGD which did not demonstrate any significant abnormalities of her upper GI tract. She endorses marijuana use approximately once a week for the last year. Discussed hyperemesis cannabis and recommendation for cessation of marijuana in order to rule this out. She also reports that she was previously diabetic and that after her gastric bypass 8 years ago she was taken off metformin and her hemoglobin A1c has never been repeated. Plan to check hemoglobin A1c. She has no other complaints and denies headache, chest pain, shortness of breath, abdominal pain, nausea, vomiting, fever, chills, dysuria, diarrhea or constipation. She is voiding without difficulty. She has not had a bowel movement several days that this is likely due to decreased PO intake. She is up ambulating without difficulty. Exam Vital Signs (past 8 hours): - 03/26/20 07:57 03/26/20 09:00 03/26/20 13:07 Temperature 97.8 F 98.1 F Pulse Rate 54 L 53 L Respiratory Rate 18 18 Blood Pressure 135/84 141/79 H Pulse Oximetry 98 98 100 Oxygen Delivery Method Room Air Oxygen Flow Rate 0 Narrative Exam Narrative: General: Older female sitting in bed and in no acute distress, well-developed, well-nourished, appropriately interactive. HEENT: Normocephalic, atraumatic. External ears without defect. Pupils equal, round, and reactive to light. Anicteric sclerae, moist conjunctivae, and no lid lag. Oropharynx free of erythema and cobble stoning with moist mucosa. Neck: Supple with full range of motion. No jugular venous distension. No lymphadenopathy or thyromegaly. Cardiovascular: Regular rate and rhythm without murmurs, rubs, or gallops appreciated. Pulmonary: Clear to auscultation bilaterally without crackles, wheezes, or rhonchi. Normal respiratory effort with no use of accessory muscles. Abdomen: Soft, bowel sounds present, nontender, nondistended. No masses appreciated. Extremities: No clubbing, cyanosis, or edema. Skin: Normal temperature, turgor, and texture; no rash, ulcers, or subcutaneous nodules appreciated. Neurological: Cranial nerves grossly intact. Psychiatric: Patient reported tearful with emotional lability but mood and affect appear normal. Alert and oriented to person, place, and time. Objective Labs Result Diagrams: 03/26/20 04:50 03/26/20 04:50 Labs: Laboratory Results - last 24 hr 03/25/20 03/25/20 03/25/20 16:55 16:55 16:55 WBC 12.9 H RBC 5.15 Hgb 15.4 Hct 46.9 H MCV 91.0 MCH 30.0 MCHC 32.9 RDW 14.4 Plt Count 262 Neut % (Auto) 75.5 H Lymph % (Auto) 17.9 L [place] % (Auto) 6.1 Eos % (Auto) 0.1 L Baso % (Auto) 0.4 Neut # (Auto) 9700 H Lymph # (Auto) 2300 [place] # (Auto) 800 Eos # (Auto) 0 Baso # (Auto) 100 Sodium 135 L Potassium 3.6 Chloride 99 Carbon Dioxide 23 BUN 35 H Creatinine 2.71 H Estimated GFR 17.6 L BUN/Creatinine Ratio 12.9 Glucose 129 H Lactate Calcium 10.2 Magnesium Total Bilirubin 1.3 AST 25 ALT 17 Alkaline Phosphatase 118 Total Creatine Kinase 43 CK-MB (CK-2) TNP CK-MB (CK-2) Rel Index TNP Troponin I 0.026 Total Protein 8.3 H Albumin 4.5 Globulin 3.8 Albumin/Globulin Ratio 1.2 Procalcitonin TSH Free T4 Urine Color Urine Appearance Urine pH Ur Specific Bandy Urine Protein Urine Glucose (UA) Urine Ketones Urine Occult Blood Urine Nitrate Urine Bilirubin Urine Urobilinogen Ur Leukocyte Esterase Urine RBC Urine WBC Ur Squamous Epith Cells Amorphous Sediment Urine Bacteria Ur Culture Indicated? COVID-19 PCR Ref Test (Refrig) 09/15/20 09/15/20 09/15/20 16:55 16:55 16:55 WBC RBC Hgb Hct MCV MCH MCHC RDW Plt Count Neut % (Auto) Lymph % (Auto) [place] % (Auto) Eos % (Auto) Baso % (Auto) Neut # (Auto) Lymph # (Auto) [place] # (Auto) Eos # (Auto) Baso # (Auto) Sodium Potassium Chloride Carbon Dioxide BUN Creatinine Estimated GFR BUN/Creatinine Ratio Glucose Lactate 2.7 H Calcium Magnesium 1.8 Total Bilirubin AST ALT Alkaline Phosphatase Total Creatine Kinase CK-MB (CK-2) CK-MB (CK-2) Rel Index Troponin I Total Protein Albumin Globulin Albumin/Globulin Ratio Procalcitonin 0.05 TSH Free T4 Urine Color Urine Appearance Urine pH Ur Specific Bandy Urine Protein Urine Glucose (UA) Urine Ketones Urine Occult Blood Urine Nitrate Urine Bilirubin Urine Urobilinogen Ur Leukocyte Esterase Urine RBC Urine WBC Ur Squamous Epith Cells Amorphous Sediment Urine Bacteria Ur Culture Indicated? COVID-19 PCR Ref Test (Refrig) 03/25/20 03/25/20 03/25/20 18:15 18:38 19:53 WBC RBC Hgb Hct MCV MCH MCHC RDW Plt Count Neut % (Auto) Lymph % (Auto) [place] % (Auto) Eos % (Auto) Baso % (Auto) Neut # (Auto) Lymph # (Auto) [place] # (Auto) Eos # (Auto) Baso # (Auto) Sodium Potassium Chloride Carbon Dioxide BUN Creatinine Estimated GFR BUN/Creatinine Ratio Glucose Lactate 0.8 Calcium Magnesium Total Bilirubin AST ALT Alkaline Phosphatase Total Creatine Kinase CK-MB (CK-2) CK-MB (CK-2) Rel Index Troponin I Total Protein Albumin Globulin Albumin/Globulin Ratio Procalcitonin TSH Free T4 Urine Color Urine Appearance Urine pH Ur Specific Bandy Urine Protein Urine Glucose (UA) Urine Ketones Urine Occult Blood Urine Nitrate Urine Bilirubin Urine Urobilinogen Ur Leukocyte Esterase Urine RBC 0-1/hpf Urine WBC 0-1/hpf Ur Squamous Epith Cells 1-5 /hpf Amorphous Sediment 1+ Urine Bacteria Occasional (0-1) Ur Culture Indicated? Cult not indicated COVID-19 PCR Negative Ref Test (Refrig) 03/26/20 03/26/20 03/26/20 04:50 04:50 04:50 WBC 8.4 RBC 3.76 L Hgb 11.3 L Hct 34.6 L MCV 92.0 MCH 30.0 MCHC 32.6 RDW 14.5 Plt Count 199 Neut % (Auto) 62.7 Lymph % (Auto) 27.6 [place] % (Auto) 8.8 Eos % (Auto) 0.5 L Baso % (Auto) 0.4 Neut # (Auto) 5300 Lymph # (Auto) 2300 [place] # (Auto) 700 Eos # (Auto) 0 Baso # (Auto) 0 Sodium 137 Potassium 3.6 Chloride 107 Carbon Dioxide 24 BUN 32 H Creatinine 2.11 H Estimated GFR 23.4 L BUN/Creatinine Ratio 15.2 Glucose 88 Lactate Calcium 8.3 L Magnesium Total Bilirubin AST ALT Alkaline Phosphatase Total Creatine Kinase CK-MB (CK-2) CK-MB (CK-2) Rel Index Troponin I Total Protein Albumin Globulin Albumin/Globulin Ratio Procalcitonin 0.07 TSH Free T4 Urine Color Urine Appearance Urine pH Ur Specific Bandy Urine Protein Urine Glucose (UA) Urine Ketones Urine Occult Blood Urine Nitrate Urine Bilirubin Urine Urobilinogen Ur Leukocyte Esterase Urine RBC Urine WBC Ur Squamous Epith Cells Amorphous Sediment Urine Bacteria Ur Culture Indicated? COVID-19 PCR Ref Test (Refrig) 03/26/20 03/26/20 03/26/20 04:50 09:01 10:28 WBC RBC Hgb Hct MCV MCH MCHC RDW Plt Count Neut % (Auto) Lymph % (Auto) [place] % (Auto) Eos % (Auto) Baso % (Auto) Neut # (Auto) Lymph # (Auto) [place] # (Auto) Eos # (Auto) Baso # (Auto) Sodium Potassium Chloride Carbon Dioxide BUN Creatinine Estimated GFR BUN/Creatinine Ratio Glucose Lactate Calcium Magnesium Total Bilirubin AST ALT Alkaline Phosphatase Total Creatine Kinase CK-MB (CK-2) CK-MB (CK-2) Rel Index Troponin I Total Protein Albumin Globulin Albumin/Globulin Ratio Procalcitonin TSH 0.05 L Free T4 1.64 Urine Color Yellow Urine Appearance Clear Urine pH 5.0 Ur Specific Bandy 1.020 Urine Protein 1+ H Urine Glucose (UA) Trace H Urine Ketones Negative Urine Occult Blood Negative Urine Nitrate Negative Urine Bilirubin Negative Urine Urobilinogen 0.2 Ur Leukocyte Esterase Negative Urine RBC None seen Urine WBC None seen Ur Squamous Epith Cells 5-10 /hpf H Amorphous Sediment Urine Bacteria None seen Ur Culture Indicated? Cult not indicated COVID-19 PCR Ref Test (Refrig) Cancelled Assessment & Plan Assessment & Plan narrative: Adri Mendoza is a 64-year-old female visiting from [place] with a past medical history significant for hypertension, hypothyroidism, emphysema, diverticulosis, morbid obesity status post Marii-en-Y gastric bypass 8 years ago, and recent intermittent cyclic vomiting syndrome over the last 1-2 years who presented to the ED for persistent nausea and vomiting. 1. Acute on chronic cyclic vomiting syndrome, present on admission. Resolving. -Patient with a history of Marii-en-Y gastric bypass 8 years ago and has developed cyclic vomiting for the last 2 years with multiple episodes per month. The patient has been thoroughly evaluated by her food safety scientist in [place] including EGD with no clear etiology. Patient received Zofran, Ativan, and Benadryl in ED with improvement/resolution of nausea and vomiting. -Hemoglobin A1C normal at 5.3%. -Possibly secondary to rapid gastric emptying (or what patient calls early dumping and dyautonomia), as well as, related to hyperemesis cannabis and discussed indefinite cessation of marijuana with patient who reports average use is once a week. Recommend outpatient gastric emptying study per PCP. -Ordered Zofran 4 mg every 6 hours as needed. -Patient tolerating clear liquid diet and plan to advance as tolerated. 2. Possible colitis, present on admission. Resolving. -Likely reactive to intractable nausea and vomiting in setting of Marii-en-Y gastric bypass. Received glucocorticoids with prednisone 40 mg daily x2 days for possible inflammatory colitis without improvement in nausea or vomiting. No significant diarrhea. -Started ciprofloxacin 400 mg IV daily and metronidazole 500 mg every 8 hours to treat possible infectious colitis, however, no elevated infectious markers therefore infectious etiology unlikely. If infectious markers remain normal will discontinue antibiotic therapy. Initial WBC 12.9 likely due to glucocorticoid and now normal at 8.4. Procalcitonin negative at 0.05. -CT on 03/23 demonstrated mild wall thickening and questionable pericolonic inflammation involving the proximal colon and proximal transverse colon. -Continue to monitor CBC and procalcitonin in the morning. 3. Acute kidney injury, present on admission. Improving. -Secondary to prerenal azotemia and dehydration from protracted nausea and vomiting. -Initial creatinine 2.7. Baseline creatinine 1.03 2 days ago on 03/23/2020. Creatinine improving now 2.11. -Received 1 L NS in ED. Continue normal saline at 125 mL/hr. -Avoid nephrotoxic agents. Discontinued losartan 100 mg daily (received morning dose) until SAV resolved. -Continue to monitor creatinine daily. 4. Hypertension, chronic, present on admission. Stable. -Patient with significant hypertension with BP 228/110 secondary to inability to keep antihypertensive medications down. Received labetalol 10 mg IV x1 in the ED with improvement in blood pressure. -Patient denies headache, chest pain or shortness of breath. -Continue home amlodipine 10 mg daily. Discontinued losartan 100 mg daily (received morning dose) until SAV resolved. 5. Hypothyroidism, chronic, present on admission. Stable. -TSH low normal at 0.05 however free T4 normal at 1.64. -Continue home levothyroxine 170 mcg daily. 6. Insomnia, chronic, present on admission. Stable. -Continue zolpidem 10 mg daily at bedtime as needed for insomnia. 7. Depression, chronic, present on admission. Stable. -Continue home paroxetine 50 mg daily. Code status: Full code, patient's is her surrogate decision maker. VTE prophylaxis: Bilateral SCDs, Disposition: Patient likely to discharge in 1-2 days once SAV resolving.
[2020-03-26 15:50] LABS: Vitamin B12 202 pg/mL (239-931)
--- NOTE | 2020-03-26 15:58 | CM.DANOTE ---
DCP Assessment: EMR reviewed: Patient was admitted for N/V and SAV. Patients currently here visiting from [place]. CM/Rn met with patient at the bedside and explained role. patient was alert and oriented x3 at time of visit. patient is independent with all ADLS and drives at baseline. I: medicare and self pay Plan: D/C home with friends when medically stable. no identified D/C planning need noted at this time. Cm department will follow to assist with any new D/C planning needs that may arise. Kandi Hoyos RN Discharge Planning/Care Management CM Discharge Assessment Start: 03/26/20 15:57 Freq: Status: Active Protocol: Document 03/26/20 15:58 HS (Rec: 03/26/20 15:58 HS [id number]) Discharge Planning Assessment Assigned Personal Injury Specialist Kandi Hoyos RN Advance Directives? No Advance Directives on File No History Provided By Patient Has Patient been admitted in last 30 No days? Prior Living Arrangements House Household Members friend(s) Type of transporation used prior to Drives own vehicle admit Independent with ADL's Yes Is patient alert and oriented? Yes Barriers to Discharge No Discharge Plan Home Referrals Initiated None needed Whiteboard Updated in Patient Room with Yes name and ext. # of Personal Injury Specialist Review Status In Process Next Review Type Continued Stay Review
[2020-03-26 16:50] LABS: Vitamin D 25 Hydroxy (D3) 28.6 ng/mL (30.0-100.0)
[2020-03-26 18:40] LABS: Hemoglobin A1C% w Est Avg Glu 5.3 % (4.0-6.0)
[2020-03-26] MEDS: CYANOCOBALAMIN 1,000 MCG/ML VIAL 1000 MCG IM (18:41)
--- NOTE | 2020-03-26 18:54 | PC.NURSE ---
Addendum entered by Ramona Tena R.N. 03/26/20 22:38: pt tolerated a general diet at dinner. No nausea reported. Up SBA to BR. No concerns expressed. Original Note: Evening shift. pt AO and receptive to care. Denying pain and denying nausea, which is an improvement. pt SBA to BR and reporting feeling steady and denying lightheadedness. PIV to right wrist compromised at start of shift and RETA Roebrts, replace PIV to left wrist and now infusing NS 125/hr with intermittent ABX. Dr. Richardson visited pt during shift and updates orders including DC'ing tele and adding a vit b12 IM injection. More home medications to re-start tomorrow morning.
[2020-03-26] MEDS: SODIUM CHLORIDE 0.9% 1,000 ML 125 ML IV (20:31)
[2020-03-26] MEDS: ZOLPIDEM 5 MG TABLET 10 MG PO (20:53)
[2020-03-27 00:43] VITALS: BP 149/96; PULSE 51; RESP 16; TEMP 36.3; O2SAT 98
[2020-03-27] MEDS: CIPROFLOXACIN 400 MG/200 ML PIGGYBACK 200 MG IV (00:54)
[2020-03-27] MEDS: metroNIDAZOLE 500 MG/100 ML PIGGYBACK 100 MG IV ×2 (02:08→08:24)
[2020-03-27 04:48] VITALS: BP 149/77; PULSE 54; RESP 16; TEMP 36.2; O2SAT 99
[2020-03-27 07:00] LABS: Add Manual Diff / Slide Review NO; Basophils Absolute Auto 100 /uL (0-100); Basophils Percent Auto 1.1 % (0-2); Eosinophils Absolute Auto 100 /uL (0-450); Eosinophils Percent Auto 2.3 % (2-4); Hematocrit 34.8 % (36-46); Hemoglobin 11.5 g/dL (12.0-16.0); Lymphocytes Absolute Auto 1800 /uL (1100-4500); Lymphocytes Percent Auto 31.4 % (25-40); Mean Corpuscular HGB Conc 33.2 % (30-36); Mean Corpuscular Hemoglobin 30.6 PG (26-34); Mean Corpuscular Volume 92.2 fL (80-100); Monocytes Absolute Auto 500 /uL (0-900); Monocytes Percent Auto 9.3 % (3-14); Neutrophils Absolute Auto 3200 /uL (1500-7000); Neutrophils Percent Auto 55.9 % (50-75); Platelet Count 169 X10^3/uL (150-400); Red Blood Cell Count 3.78 X10^6/uL (4.0-5.2); Red Cell Distribution Width 14.2 % (11.6-14.8); White Blood Cell Count 5.7 X10^3/uL (4.5-11.0)
[2020-03-27 07:22] LABS: BUN Creatinine Ratio 17.4 (6-22); Blood Urea Nitrogen 24 mg/dL (7-17); Calcium 8.5 mg/dL (8.4-10.2); Carbon Dioxide 22 mmol/L (22-32); Chloride 111 mmol/L (98-107); Estimated Glomerular Filt Rate 38.3 mL/min (>60); Glucose 85 mg/dL (80-110); HEMOLYSIS < 15 (0-50); Magnesium 1.8 mg/dL (1.6-2.3); Potassium 3.8 mmol/L (3.4-5.1); Sodium 138 mmol/L (137-145)
[2020-03-27 07:42] LABS: Procalcitonin < 0.05 ng/mL (<0.5)
[2020-03-27] MEDS: SODIUM CHLORIDE 0.9% 1,000 ML 125 ML IV (08:26)
[2020-03-27] MEDS: AMLODIPINE 5 MG TABLET 10 MG PO (08:28)
[2020-03-27] MEDS: PANTOPRAZOLE 40 MG VIAL IV (08:28)
[2020-03-27] MEDS: SODIUM CHLORIDE 0.9% FLUSH 10 ML IV (08:28)
[2020-03-27] MEDS: MULTIVITAMIN 1 TABLET 1 TAB PO (08:28)
[2020-03-27] MEDS: PARoxetine 10 MG TABLET PO (08:29)
[2020-03-27] MEDS: CHOLECALCIFEROL (VITAMIN D3) 1,000 UNIT TABLET 3000 UNIT PO (08:29)
[2020-03-27] MEDS: HEPARIN 5,000 UNIT/ML VIAL 5000 UNIT SUBCUT (08:29)
[2020-03-27] MEDS: LEVOTHYROXINE 100 MCG TABLET 175 MCG PO (08:29)
[2020-03-27 08:38] VITALS: BP 136/85; PULSE 54; RESP 16; TEMP 36.1; O2SAT 99
[2020-03-27] MEDS: PARoxetine 20 MG TABLET 40 MG PO (08:40)
[2020-03-27] MEDS: THIAMINE 100 MG in SODIUM CHLORIDE 0.9% 50 ML 204 ML IV (09:44)
--- NOTE | 2020-03-27 10:13 | PC.NURSE ---
Addendum entered by Mallory Crawley R.N. 03/27/20 12:34: Went freya jackson instructions and medications with patient, questions answered. Patient taken via wc to vehicle driven by spouse, patient had all belongings. Original Note: Patient alert, oriented denies pain and nausea, tolerated general diet. Anticipating discharge later this morning.
--- NOTE | 2020-03-27 12:08 | P.DS_ITS ---
History of Present Illness History of Present Illness Date Patient Seen: 03/25/20 Chief complaint: NAUSEA Narrative: Written by Darryl NICE: Ms. Adri Mendoza is a 64-year-old female visiting from [place] with history significant for hypertension, emphysema, diverticulosis and status post Marii-en-Y gastric bypass 8 years ago presents to the ER for persistent nausea vomiting. The patient was seen in the ER 2 days ago after onset of severe nausea vomiting following eating lunch at [employer] earlier that day. The patient was treated with Zofran Ativan and IV fluids and discharged home. The patient states that she has had frequent episodes of nausea vomiting occurring multiple times per month for the last 2 years. She reports having bee n evaluated by gastroenterology in undergone multiple EGD without identified occasion of etiology. The patient reports today associated symptoms of chills but denies abdominal pain, urinary symptoms or diarrhea. She has had no complaints of hematemesis, hematochezia or melena. She has had no headaches or dizziness and denies nasal congestion or sore throat. She has had no known COVID-19 exposures. She denies complaints of chest pain or palpitations, shortness of breath cough or wheezing. Her nausea improved transiently following treatment in the ER 2 days ago. She presents is hypertensive to the ER and states she has been unable to keep down her antihypertensive medication. Upon arrival to the ER the patient has a temperature 99.0?, heart rate of 70, blood pressure 190/98, respirations 22 and saturation 100%. Chest x-ray is obtained with no acute cardiopulmonary findings. She had a CT scan done under visit 2 days ago 03/23/2020 which finds mild wall thickening and questionable pericolonic inflammation involving the proximal colon and proximal transverse colon, finding suggestive of infectious or inflammatory colitis, sigmoid diverticulitis without acute diverticulitis. On laboratory analysis the patient has elevated white count at 12.9, hemoglobin of 15.4, hematocrit of 46.9 and platelets of 262. Her electrolytes are all within normal limits with a BUN of 35 and creatinine of 2.71. She has a total bilirubin 1.3, AST of 25, ALT 17 alkaline phosphatase of 118. Albumin is 4.5. Lactic acid is 0.8. Procalcitonin is 0.05. Total CK is 43 and troponin is 0.026. In the ER the patient received normal saline bolus, Ativan, Zofran, labetalol, Benadryl and Haldol. COVID-19 Ng is negative the patient is admitted to the medicine service for intractable nausea and vomiting with acute kidney injury and hypertensive urgency. Discharge Providers Provider Date of admission: 03/25/20 19:14 Discharge Date: 03/27/20 Consults: 03/25/20 21:46 Consult to Dietitian, Adult Routine Comment: Reason For Exam: Status post gastric bypass, intractable nausea vom Discharge provider: Chloe Richardson DO Summary Hospital Course Discharge Diagnosis: 1. Acute on chronic cyclic vomiting syndrome, present on admission. Resolving. 2. Reactive colitis, present on admission. Resolved. 3. Acute kidney injury, present on admission. Resolving. 4. Hypertension, chronic, present on admission. Stable. 5. Hypothyroidism, chronic, present on admission. Stable. 6. Insomnia, chronic, present on admission. Stable. 7. Depression, chronic, present on admission. Stable. 8. Marii-en-Y gastric bypass with malabsorption, chronic, present on admission. Stable. Hospital Course: Adri Mendoza is a 64-year-old female visiting from [place] with a past medical history significant for hypertension, hypothyroidism, emphysema, diverticulosis, morbid obesity status post Marii-en-Y gastric bypass 8 years ago, and recent intermittent cyclic vomiting syndrome over the last 1-2 years who presented to the ED for persistent nausea and vomiting. 1. Acute on chronic cyclic vomiting syndrome, present on admission. Resolving. -Patient with a history of Marii-en-Y gastric bypass 8 years ago and has developed cyclic vomiting for the last 2 years with multiple episodes per month. The patient has been thoroughly evaluated by her [employer] developer in [place] including EGD with no clear etiology. Patient received Zofran, Ativan, and Benadryl in ED with improvement/resolution of nausea and vomiting. -Hemoglobin A1C normal at 5.3%. -Likely secondary to rapid gastric emptying (or what patient calls early dumping and dyautonomia), as well as, related to hyperemesis cannabis and discussed indefinite cessation of marijuana with patient who reports average use is once a week. Recommend outpatient gastric emptying study per PCP. -Ordered Zofran 4 mg every 6 hours as needed. -Patient tolerated slow advancement of diet to heart healthy. 2. Reactive colitis, present on admission. Resolved. -Likely reactive due to intractable nausea and vomiting in setting of Marii-en-Y gastric bypass. Received glucocorticoids with prednisone 40 mg daily x2 days for possible inflammatory colitis without improvement in nausea or vomiting. No significant diarrhea. -Started ciprofloxacin 400 mg IV daily and metronidazole 500 mg every 8 hours to treat possible infectious colitis, however, no elevated infectious markers or signs of infection therefore discontinued. Initial WBC 12.9 likely due to glucocorticoid and now normal at 8.4. Procalcitonin negative at 0.05. -CT on 03/23 demonstrated mild wall thickening and questionable pericolonic inflammation involving the proximal colon and proximal transverse colon. -Continued to monitor CBC and procalcitonin daily. 3. Acute kidney injury, present on admission. Resolving. -Secondary to prerenal azotemia and dehydration from protracted nausea and vomiting. -Initial creatinine 2.7. Baseline creatinine 1.03 2 days ago on 03/23/2020. Creatinine nearly normalized at 1.38. -Received 1 L NS in ED. Continued normal saline at 125 mL/hr until adequately hydrated then discontinued. -Avoided nephrotoxic agents. Held home losartan 100 mg daily due to SAV resumed at time of discharge -Continued to monitor creatinine daily. 4. Hypertension, chronic, present on admission. Stable. -Patient with significantly hypertensive on admission with BP 228/110 secondary to inability to keep antihypertensive medications down with intractable nausea vomiting. Received labetalol 10 mg IV x1 in the ED with improvement in blood pressure. -Patient denies headache, chest pain or shortness of breath. -Continued home amlodipine 10 mg daily. Held home losartan 100 mg daily due to SAV and resumed at time of discharge. 5. Hypothyroidism, chronic, present on admission. Stable. -TSH low normal at 0.05 however free T4 normal at 1.64. -Continued home levothyroxine 170 mcg daily. 6. Insomnia, chronic, present on admission. Stable. -Continued zolpidem 10 mg daily at bedtime as needed for insomnia. 7. Depression, chronic, present on admission. Stable. -Continued home paroxetine 50 mg daily. 8. Marii-en-Y gastric bypass with malabsorption, chronic, present on admission. Stable. -Previously patient was taking vitamin supplementation but discontinued for unclear reasons. -B12 low at 202, 25-OH vitamin-D low at 28.6, B1 send out and pending. -Consulted dietitian and appreciate her time and recommendations. -Continue vitamin D3 3000 units daily, B12 1000 mcg IM monthly (received monthly dose during hospitalization), calcium carbonate 1200 mg daily, multivitamin with minerals twice daily and thiamine 100 mg IV x2 and 100 mg daily thereafter. Exam Vital Signs (past 8 hours): - 03/27/20 04:48 03/27/20 08:38 Temperature 97.2 F L 97.0 F L Pulse Rate 54 L 54 L Respiratory Rate 16 16 Blood Pressure 149/77 H 136/85 Pulse Oximetry 99 99 Oxygen Delivery Method Room Air Oxygen Flow Rate 0 Narrative Exam Narrative: General: Older female sitting in bed and in no acute distress, well-developed, well-nourished, appropriately interactive. HEENT: Normocephalic, atraumatic. External ears without defect. Pupils equal, round, and reactive to light. Anicteric sclerae, moist conjunctivae, and no lid lag. Oropharynx free of erythema and cobble stoning with moist mucosa. Neck: Supple with full range of motion. No jugular venous distension. No lymphadenopathy or thyromegaly. Cardiovascular: Regular rate and rhythm without murmurs, rubs, or gallops appreciated. Pulmonary: Clear to auscultation bilaterally without crackles, wheezes, or rhonchi. Normal respiratory effort with no use of accessory muscles. Abdomen: Soft, bowel sounds present, nontender, nondistended. No masses appreciated. Extremities: No clubbing, cyanosis, or edema. Skin: Normal temperature, turgor, and texture; no rash, ulcers, or subcutaneous nodules appreciated. Neurological: Cranial nerves grossly intact. Psychiatric: Normal mood and affect. Alert and oriented to person, place, and time. Objective Labs Result Diagrams: 03/27/20 06:50 03/27/20 06:50 Labs: Laboratory Results - last 24 hr 03/26/20 03/26/20 03/26/20 04:50 14:51 14:51 WBC RBC Hgb Hct MCV MCH MCHC RDW Plt Count Neut % (Auto) Lymph % (Auto) [place] % (Auto) Eos % (Auto) Baso % (Auto) Neut # (Auto) Lymph # (Auto) [place] # (Auto) Eos # (Auto) Baso # (Auto) Sodium Potassium Chloride Carbon Dioxide BUN Creatinine Estimated GFR BUN/Creatinine Ratio Glucose Hemoglobin A1c 5.3 Calcium Magnesium Vitamin B12 202 L 25-OH Vitamin D Total 1,25 Dihydroxy Vit D Cancelled 1,25 Dihydroxy Vit D2 Cancelled 1,25 Dihydroxy Vit D3 Cancelled Procalcitonin 03/26/20 03/27/20 03/27/20 15:00 06:50 06:50 WBC 5.7 RBC 3.78 L Hgb 11.5 L Hct 34.8 L MCV 92.2 MCH 30.6 MCHC 33.2 RDW 14.2 Plt Count 169 Neut % (Auto) 55.9 Lymph % (Auto) 31.4 [place] % (Auto) 9.3 Eos % (Auto) 2.3 Baso % (Auto) 1.1 Neut # (Auto) 3200 Lymph # (Auto) 1800 [place] # (Auto) 500 Eos # (Auto) 100 Baso # (Auto) 100 Sodium Potassium Chloride Carbon Dioxide BUN Creatinine Estimated GFR BUN/Creatinine Ratio Glucose Hemoglobin A1c Calcium Magnesium Vitamin B12 25-OH Vitamin D Total 28.6 L 1,25 Dihydroxy Vit D 1,25 Dihydroxy Vit D2 1,25 Dihydroxy Vit D3 Procalcitonin < 0.05 03/27/20 06:50 WBC RBC Hgb Hct MCV MCH MCHC RDW Plt Count Neut % (Auto) Lymph % (Auto) [place] % (Auto) Eos % (Auto) Baso % (Auto) Neut # (Auto) Lymph # (Auto) [place] # (Auto) Eos # (Auto) Baso # (Auto) Sodium 138 Potassium 3.8 Chloride 111 H Carbon Dioxide 22 BUN 24 H Creatinine 1.38 H Estimated GFR 38.3 L BUN/Creatinine Ratio 17.4 Glucose 85 Hemoglobin A1c Calcium 8.5 Magnesium 1.8 Vitamin B12 25-OH Vitamin D Total 1,25 Dihydroxy Vit D 1,25 Dihydroxy Vit D2 1,25 Dihydroxy Vit D3 Procalcitonin Discharge Plan Discharge Plan Patient Disposition: Home Discharge comment: You are being discharged home. You had a flare-up of your cyclic vomiting syndrome possibly from rapid gastric emptying causing dysautonomia or dysregulation of your nervous system of the GI tract and slowed gastric emptying. Please try to stay well hydrated. Please abstain from marijuana use indefinitely as this may cause hyperemesis cannabis which could be contributing to your cyclic vomiting flares. You have been provided counseling from our dietitian and recommend continued vitamin supplementation as below due to history of gastric bypass. Also recommend cutting back on alcohol use as this may flare your cyclic vomiting syndrome. Recommend repeat gastric emptying study to reassess for gastroparesis (slowed emptying of your stomach/GI tract) and whether this is presents and if so whether it is worsening. Please follow- up with your primary care physician regarding your hospitalization in the next 1-2 weeks when you return home to [place]. Discharge orders & Medications Prescriptions: New cholecalciferol (vitamin D3) [Vitamin D3] 25 mcg (1,000 unit) Tablet 3,000 unit PO DAILY Qty: 90 RF: 0 thiamine HCl (vitamin B1) 100 mg tablet 100 mg PO DAILY Qty: 30 RF: 0 calcium carbonate [Calcium 600] 600 mg calcium (1,500 mg) tablet 1,200 mg PO DAILY Qty: 60 RF: 0 Thera M Plus (ferrous fumarat) 9 mg iron-400 mcg Tablet 1 tab PO BID Qty: 30 RF: 0 Continued ondansetron 4 mg tablet,disintegrating 4 mg PO Q6H PRN (Reason: nausea and vomiting) Qty: 20 RF: 0 levothyroxine 175 mcg tablet 175 mcg PO QAM RF: 0 paroxetine HCl 10 mg tablet 10 mg PO QAM RF: 0 alendronate 70 mg tablet 12 mg PO QWEEK RF: 0 zolpidem 10 mg tablet 10 mg PO BEDTIME PRN (Reason: Insomnia) RF: 0 paroxetine HCl 40 mg tablet 40 mg PO QAM RF: 0 amlodipine 10 mg tablet 10 mg PO DAILY RF: 0 losartan 100 mg tablet 100 mg PO DAILY RF: 0 Discontinued prednisone 20 mg tablet 40 mg PO DAILY Qty: 10 RF: 0 Diet/Activity/Treatments Diet: Diet as Tolerated, Low-fat, Low-sodium and Low-cholesterol Activity: Activity as tolerated Visit Report/Discharge Packet Instructions: Gastroparesis, DI for Cyclic Vomiting Syndrome-Child, DI for Cannabinoid Hyperemesis Syndrome Visit Report Forms: Patient Portal/API, Stroke Signs & Symptoms
[2020-03-29 03:22] LABS: Vitamin B1 168.1 nmol/L (66.5-200.0)
== END 2020-03-27 12:35 | disposition home or self-care (01) | DRG 683 ==
LOC: ED 18:41 → AC 19:14
PROVIDERS: Emergency Medicine; Internal Medicine; Nurse Practitioner Adult Health; Admitting Provider Internal Medicine; Emergency Provider Nurse Practitioner Family; Referring Provider Nurse Practitioner Family; Visit Provider Internal Medicine
DX: N17.9 Acute kidney failure, unspecified (principal); K91.2 Postsurgical malabsorption, not elsewhere classified; R11.15 Cyclical vomiting syndrome unrelated to migraine; E86.0 Dehydration; K52.89 Other specified noninfective gastroenteritis and colitis; I10 Essential (primary) hypertension; E03.9 Hypothyroidism, unspecified; G47.00 Insomnia, unspecified; F32.9 Major depressive disorder, single episode, unspecified; Z98.84 Bariatric surgery status; Z87.891 Personal history of nicotine dependence
CPT/HCPCS: 36415; 71045; 71260; 74177; 80048; 80053; 81001; 81003; 81015; 82306; 82550; 82607; 83036; 83605; 83690; 83735; 84145; 84425; 84439; 84443; 84484; 85025; 87635; 93005; 93010; 94762; 96361; 96374; 96375; 96376; 99284; C9113; J0744; J1200; J1630; J1644; J2060; J2405; J2930; J3420; Q9967